=== PATIENT | male | born 1965 ===

== ENCOUNTER 2025-04-11 11:58 | Inpatient (IN) | payer BC, SELFPAY ==
[2025-04-11] VITALS (13 sets, daily range): BP systolic 98–219; BP diastolic 60–112; BMI 35.9; BMI 34.6
--- NOTE | 2025-04-11 09:09 | ED.GENMED ---
History of Present Illness
<Amirah Amaya PA-C - Last Filed: 04/11/25 14:04>
General
Chief Complaint: Breathing Problem
Source: patient
Exam Limitations: none
Time Seen by Provider: 04/11/25 09:05
History of Present Illness
History of Present Illness:
59yoM with a history of coronary artery disease s/p CABGx4 in 2019 presenting for evaluation of shortness of breath. Patient reports progressive dyspnea over the past 2 to 3 weeks to the point where he is having difficulty getting out of bed and he
is having significant difficulty walking up steps. It takes him 5 to 10 minutes after resting to catch his breath. He is also having worsening leg swelling and he started to notice scrotal swelling a few weeks ago. Patient reports that he has
gained 30 pounds in the past year. He denies any chest pain. He has not seen his flow trader in at least 3 years. He was previously following with Dr. Madan Wooten. He is currently taking furosemide 40mg daily and aspirin. 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
Phy Exam
<Amirah Amaya PA-C - Last Filed: 04/11/25 14:04>
General Physical Exam
General Presentation: moderate distress
General age: appears older than age
General Skin: warm and dry
General Habitus: normal
General Mental: alert
ENT Exam
ENT Exam: normocephalic
Cardiovascular Exam
Cardiovascular Exam: regular rate/rhythm and other (Significant 4+ pitting edema of lower extremities up to level of the abdomen and scrotum)
Pulmonary Exam
Pulmonary Exam: decreased breath sounds and other (Decreased breath sounds with rales)
Gastrointestinal Exam
Gastrointestinal Exam: other (Abdomen distended with +fluid wave. No tenderness to palpation. )
Genitourinary Exam Male
Exam Male: other (Penile/scrotal edema noted. No wounds, crepitus, or tenderness. )
Neurological Exam
Neurological Exam: alert
[place] Coma Scale
Eye Opening: Spontaneous
Verbal Response: Oriented
Motor Response: Obeys Commands
GCS Total Score: 15
Skin Exam
Skin Exam: normal color and warm/dry
Psychiatric Exam
Psychiatric Exam: normal mood/affect
Scores
<Amirah Amaya PA-C - Last Filed: 04/11/25 14:04>
Heart Failure Risk
Heart Failure Risk Score: Yes
History of Stroke or TIA: No
History of intubation for respiratory distress: No
Heart rate on ED arrival >/= 110: No
SaO2 <90% on arrival on room air: Yes
HR >/=110 during 3min walk test (or too ill to perform test): No
ECG has acute ischemic changes: Yes
Urea >/=12mmol/L (BUN 33.6mg/dL): No
Serum CO2>/=35mmol/L: No
Troponin I or T elevated to [place] Level (0.4mg/dL): Yes
NT-proBNP >/=5,000ng/L (5,000pg/ml): Yes
HF Risk Score: 6
Admission Status: VERY HIGH RISK 55.3% Consider admission to hospital
Course
<Amirah Amaya PA-C - Last Filed: 04/11/25 14:04>
Orders/Labs/Results
Orders:
Orders
04/11/25 08:41
Electrocardiogram (*1) Urgent
Reason for Study: Shortness of Breath
EKG- Treatment ONCE
04/11/25 09:29
Cardiac Monitoring- Treatment ONCE
CR Chest - 2 Views Urgent
Comment:
Reason For Exam: SOB, leg swelling
04/11/25 09:37
US Abdomen Limited Urgent
Comment:
Reason For Exam: ascites check
04/11/25 09:40
COVID-19 Antigen Urgent
Source: Nasal Swab
Complete Blood Count/With Diff Urgent
Comprehensive Metabolic Panel Urgent
Lactic Acid Urgent
NT-proBNP Urgent
Troponin I Urgent
Blood Culture Q30M
CHRISTINE Source: Blood/Venous
Specimen Description:
Influenza A+B Rapid Molecular Urgent
CHRISTINE Source: Nasal Swab
Specimen Description:
04/11/25 10:24
Furosemide [Lasix] 80 mg IV NOW STA
04/11/25 10:49
CARDIOLOGY CONSULT Urgent
Consulting Provider: Nadine Franz
Was physician already notified: Yes
04/11/25 11:21
Straight cath- Treatment ONCE
Cefepime HCl [Maxipime] 2,000 mg IV NOW STA
Vancomycin [Vancocin] 2,000 mg 0.9% Sodium Chloride 500 ml [Nss] 500 ml IV NOW
04/11/25 11:36
Admit/Transfer Patient As Directed
Co-Sign Provider:
Level of Care: Inpatient admission
Assign to:: IMU- Intermediate Care
Physician / Group: Hospitalist
Diagnosis: Sepsis/ CHF / positive troponin
Reason for Hospitalization: .
Expected length of stay greater than two midnights?: Yes
ELOS- Estimated Length of Stay in days: 3
I certify the patient meets the requirements for IP care: Yes
Code Status As Directed
Resuscitation Status: Full Code
PRN Pain Medication Management As Directed
May give lesser potent ordered pain med per pt: Yes
preference::
Protocol:: Medication orders for pain may be administered in a
manner that supports deferring to patient preference
when the pt is:
- Requesting an ordered lesser potent pain medication.
Least to most potent pain medications are defined
as: acetaminophen < NSAID < tramadol < opioids
(morphine, oxycodone, hydromorphone).
- Requesting a lesser dose of the same medication IF
ORDERED.
- Requesting a less intrusive route of administration
if both routes are prescribed by the provider (PO <
IV).
04/11/25 12:17
Troponin I Stat
Blood Culture Q30M
CHRISTINE Source: Blood/Venous
Specimen Description:
04/11/25 13:54
Urinalysis Reflex To Culture Urgent
Date Specimen was Collected: 04/11/25
Time Specimen was Collected: 13:32
Abnormal Lab Results
04/11/25
09:40
WBC 22.7 H 10^3/uL
(4.8-10.8)
RBC 4.43 L 10^6/uL
(4.70-6.10)
Hgb 12.5 L g/dL
(13.0-18.0)
MCHC 31.8 L g/dL
(33.0-37.0)
RDW 16.9 H %
(11.5-14.5)
Abs Immat Gran (auto) 0.2 H 10^3/uL
(0-0.05)
Absolute Neuts (auto) 20.4 H 10^3/uL
(1.4-6.5)
Absolute Lymphs (auto) 0.7 L 10^3/uL
(1.2-3.4)
Absolute Monos (auto) 1.4 H 10^3/uL
(0.1-0.6)
Immature Gran % 0.7 H %
(0-0.5)
Neutrophils % 89.8 H %
(42.2-75.2)
Lymphocytes % 3.1 L %
(20.5-51.1)
Glucose 110 H mg/dl
(70-99)
Lactic Acid 2.1 H mmol/L
(0.7-2.0)
Total Bilirubin 2.0 H mg/dl
(0.2-1.3)
Troponin I 0.324 H* ng/ml
04/11/25 09:40
04/11/25 09:40
Vital Signs
Initial and Last Documented VS:
Initial Vital Signs
Temp Pulse Resp BP Pulse Ox
100.7 F H 109 18 219/110 96
04/11/25 08:37 04/11/25 08:37 04/11/25 08:37 04/11/25 08:37 04/11/25 08:37
Last Documented Vital Signs
Temp Pulse Resp BP Pulse Ox
101.6 F H 96 11 122/72 98
04/11/25 12:20 04/11/25 13:00 04/11/25 10:00 04/11/25 13:00 04/11/25 13:00
<Zenon Donis MD - Last Filed: 04/11/25 11:21>
Orders/Labs/Results
Orders:
Orders
04/11/25 08:41
Electrocardiogram (*1) Urgent
Reason for Study: Shortness of Breath
EKG- Treatment ONCE
04/11/25 09:29
Cardiac Monitoring- Treatment ONCE
CR Chest - 2 Views Urgent
Comment:
Reason For Exam: SOB, leg swelling
04/11/25 09:37
US Abdomen Limited Urgent
Comment:
Reason For Exam: ascites check
04/11/25 09:40
COVID-19 Antigen Urgent
Source: Nasal Swab
Complete Blood Count/With Diff Urgent
Comprehensive Metabolic Panel Urgent
Lactic Acid Urgent
NT-proBNP Urgent
Troponin I Urgent
Blood Culture Q30M
CHRISTINE Source: Blood/Venous
Specimen Description:
Influenza A+B Rapid Molecular Urgent
CHRISTINE Source: Nasal Swab
Specimen Description:
04/11/25 10:24
Furosemide [Lasix] 80 mg IV NOW STA
04/11/25 10:49
CARDIOLOGY CONSULT Urgent
Consulting Provider: Nadine Franz.
Was physician already notified: Yes
04/11/25 11:21
Straight cath- Treatment ONCE
Cefepime HCl [Maxipime] 2,000 mg IV NOW STA
Vancomycin [Vancocin] 2,000 mg 0.9% Sodium Chloride 500 ml [Nss] 500 ml IV NOW
04/11/25 11:36
Admit/Transfer Patient As Directed
Co-Sign Provider:
Level of Care: Inpatient admission
Assign to:: IMU- Intermediate Care
Physician / Group: Hospitalist
Diagnosis: Sepsis/ CHF / positive troponin
Reason for Hospitalization: .
Expected length of stay greater than two midnights?: Yes
ELOS- Estimated Length of Stay in days: 3
I certify the patient meets the requirements for IP care: Yes
Code Status As Directed
Resuscitation Status: Full Code
PRN Pain Medication Management As Directed
May give lesser potent ordered pain med per pt: Yes
preference::
Protocol:: Medication orders for pain may be administered in a
manner that supports deferring to patient preference
when the pt is:
- Requesting an ordered lesser potent pain medication.
Least to most potent pain medications are defined
as: acetaminophen < NSAID < tramadol < opioids
(morphine, oxycodone, hydromorphone).
- Requesting a lesser dose of the same medication IF
ORDERED.
- Requesting a less intrusive route of administration
if both routes are prescribed by the provider (PO <
IV).
04/11/25 12:17
Troponin I Stat
Blood Culture Q30M
CHRISTINE Source: Blood/Venous
Specimen Description:
04/11/25 13:54
Urinalysis Reflex To Culture Urgent
Date Specimen was Collected: 04/11/25
Time Specimen was Collected: 13:32
Abnormal Lab Results
04/11/25
09:40
WBC 22.7 H 10^3/uL
(4.8-10.8)
RBC 4.43 L 10^6/uL
(4.70-6.10)
Hgb 12.5 L g/dL
(13.0-18.0)
MCHC 31.8 L g/dL
(33.0-37.0)
RDW 16.9 H %
(11.5-14.5)
Abs Immat Gran (auto) 0.2 H 10^3/uL
(0-0.05)
Absolute Neuts (auto) 20.4 H 10^3/uL
(1.4-6.5)
Absolute Lymphs (auto) 0.7 L 10^3/uL
(1.2-3.4)
Absolute Monos (auto) 1.4 H 10^3/uL
(0.1-0.6)
Immature Gran % 0.7 H %
(0-0.5)
Neutrophils % 89.8 H %
(42.2-75.2)
Lymphocytes % 3.1 L %
(20.5-51.1)
Glucose 110 H mg/dl
(70-99)
Lactic Acid 2.1 H mmol/L
(0.7-2.0)
Total Bilirubin 2.0 H mg/dl
(0.2-1.3)
Troponin I 0.324 H* ng/ml
04/11/25 09:40
04/11/25 09:40
Vital Signs
Initial and Last Documented VS:
Initial Vital Signs
Temp Pulse Resp BP Pulse Ox
100.7 F H 109 18 219/110 96
04/11/25 08:37 04/11/25 08:37 04/11/25 08:37 04/11/25 08:37 04/11/25 08:37
Last Documented Vital Signs
Temp Pulse Resp BP Pulse Ox
101.6 F H 96 11 122/72 98
04/11/25 12:20 04/11/25 13:00 04/11/25 10:00 04/11/25 13:00 04/11/25 13:00
<Amirah Amaya PA-C - Last Filed: 04/11/25 14:04>
MDM/Problems Addressed
Differential Diagnosis Includes:
59yoM here with progressive SOB and leg swelling x several months. Has not seen his flow trader in several years. BP 219/110 on arrival. HR 100.7. He was previously unaware of this fever. Anasarca noted on exam with lower extremity, scrotal, and
abdominal pitting edema. Differential diagnosis includes but is not limited to: Acute CHF exacerbation, cardiorenal syndrome, ACS, pneumonia, viral illness, sepsis
Initial ED plan: Triage EKG shows sinus tachycardia with low voltage QRS and nonspecific T wave changes. Check cardiac labs, lactate, blood cultures, COVID/swab, UA, chest x-ray, and abdominal ultrasound to evaluate for ascites.
<Amirah Amaya PA-C - Last Filed: 04/11/25 14:04>
*Pulse Oximetry
SaO2: 96
Oxygen Mode of Delivery: Room air
Patient hypoxic: yes
*EKG
Interpreted by ED Provider?: Yes
EKG Intrepretation Date: 04/11/25
Heart Rate: 111
Rate: tachycardiac
Rhythm: sinus
[place]: normal axis
Interval: normal interval
QRS Pattern: low voltage
Ischemia: T-wave inversion
*Critical Care Note
Total Time (30-74mins, 75-104mins- exclusive of procedures): Not Applicable
<Amirah Amaya PA-C - Last Filed: 04/11/25 14:04>
Update Note
Update Note:
Labs reveal a BNP >18,000 and troponin of 0.324. Leukocytosis noted with a white count of 22 and lactate elevated at 2.1. Chest x-ray shows pulmonary edema. Unclear etiology of fever. Broad-spectrum antibiotics and 80 mg IV Lasix ordered.
Patient admitted for further evaluation and management.
ED Attending Note
<Amirah Amaya PA-C - Last Filed: 04/11/25 14:04>
-
Portions of this chart may have been created with voice recognition software.� Occasional wrong word or��sound alike� substitutions may have occurred due to the inherent limitations of voice recognition software.
<Zenon Donis MD - Last Filed: 04/11/25 11:21>
ED Attending Note
Patient seen and examined by attending physician: Yes
I performed the substantive portion of visit, reviewed & personally made and approve the management plan that is documented in note by myself or JOHN.: Yes
ED Attending Note:
59-year-old male with a history of CABG hypertension presents with shortness of breath progressive over 1+ month along with diffuse edema that is also becoming progressive. Denies chest pain. Denies fever or infectious symptoms. Only takes Lasix
and an aspirin. Positive smoker. Occasional drinker.
GENERAL: Alert and oriented
EYE: Orbits normal.
NECK: Supple, no significant adenopathy.
ENT: Pharynx without erythema
CARDIAC: Mildly tachycardic and regular no murmur
LUNGS: Rales in the bases. Mild tachypnea at rest
ABDOMEN: Tight distended abdomen but nontender. Some pitting.
: Scrotal edema. No obvious erythema for Bubba's
NEUROLOGICAL: Alert and oriented , grossly non-focal
SKIN: Warm and dry, chronic erythematous and hyper pigmentation changes the lower extremities.
MUSCULOSKELETAL: Significant pitting edema throughout both lower extremities up to and including the scrotum. Also some pitting to the upper extremities worse on the left
PSYCH: Normal and appropriate interaction.
EKG tachycardia with nonspecific changes. Patient clinically has significant edema. This may be heart failure related, kidney related or both. With low-grade fever also workup for an infectious etiology. Clearly warrants admission. Workup in
progress
All consistent with heart failure. proBNP 17,000. Anasarca with diffuse edema. Pulmonary edema on x-ray. There are of course could be a septic component to this. Hospitalist feels this is a significant component. Will check urine and cover
with antibiotics. Also contact cardiology
Discharge Plan
Departure
Patient Disposition: Admit
Date of Disposition: 04/11/25
Time of Disposition: 10:48
Presentation/result/management discussed w/ accepting MD/DO: Hospitalist
Discharge Problem:
Acute exacerbation of CHF (congestive heart failure), Elevated troponin, Fever
Interventions
Interventions:
*Risk Screen - Suicide Last Done: 04/11/25 08:37
*General Assessment Last Done: 04/11/25 09:40
*Neglect/Abuse Screening Last Done: 04/11/25 08:37
*ED COVID-19 Vaccine History Last Done: 04/11/25 11:14
*ED Influenza Vaccine History Last Done: 04/11/25 11:14
ED- Cardiac Assessment Last Done: 04/11/25 09:40
ED- Pulmonary Assessment Last Done: 04/11/25 09:40
[2025-04-11 10:04] LABS: ALT (SGPT) 22 U/L (0-50); AST (SGOT) 27 U/L (17-59); Albumin 3.9 g/dl (3.5-5.0); Alkaline Phosphatase 117 U/L (38-126); Blood Urea Nitrogen 14 mg/dl (9-20); Calcium 8.7 mg/dl (8.4-10.2); Carbon Dioxide 26 mmol/L (22-30); Chloride 105 mmol/L (98-107); Estimated Creatinine Clearance 94 ml/min; Glucose 110 mg/dl (70-99); Potassium 4.4 mmol/L (3.5-5.1); Sodium 138 mmol/L (135-145); Total Protein 8.1 g/dl (6.3-8.2); eGFR > 60.00
[2025-04-11 10:20] LABS: Troponin I 0.324 ng/ml
[2025-04-11 10:29] LABS: COVID-19 Antigen Negative (Negative)
--- NOTE | 2025-04-11 10:58 | HPS.HSE ---
Family Physician
-
Family Physician: * NONE
Chief Complaint
-
Progressive weakness or shortness of breath with edema last a few days/weeks
History of Present Illness
59 years old male presented from home. Patient reported he has been having shortness of breath/trouble breathing last a few days. His stepfather brought him to the hospital after noticing breathing difficulty and weakness. Patient reported edema
all over his body and mostly lower part including scrotum. He denies chest pain. He denies fever or chills but reports he is always cold. In the ER, he was found to have leukocytosis, lactic acidosis, elevated proBNP and troponin of 0.324.
Patient has history of cardiac bypass surgery in 2019 in [facility]. He followed with customer operations representative at the time but has not seen a doctor or primary care few years ago. He has not taken any medication more than 1 year ago. He was supposed to be
on Lasix and the aspirin as he recalled. He smokes tobacco and takes Gummies to help with sleep. He reports difficulty urination.
Medical History
Past Medical History
Past Medical History: Reports Other (CAD, tobacco use, obesity)
Past Surgical History: Reports Other (Coronary bypass surgery in 2019)
Social History
Tobacco: Smoker
Alcohol: Occasional
Drug: Marijuana
Personal: Single
Living: With Family
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
Family History
Family History: Other (History of congestive heart failure. No history of diabetes or blood clots.)
Allergies / Home Medications
Allergies reflects when Allergies were last updated in [facility].
Home Medications with original date entered in [facility]
Allergy/Medication List:
Allergies
Allergy/AdvReac Type Severity Reaction Status Date / Time
No Known Allergies Allergy Verified 04/11/25 08:41
Home Medications
No Meds [No Current Medications] 04/11/25
Review of Systems
-
History Source: Patient
A 12 point ROS was completed and negative except as noted: Yes
Constitutional: Reports Chills
EENT: Denies Sore Throat
Respiratory: Reports Trouble Breathing
Cardiac: Denies Chest Pain
Abdomen/GI: Denies Abdominal Pain or Diarrhea
: Reports Difficulty Voiding; Denies Bleeding
Musculoskeletal: Reports Edema
Skin: Denies Rash
Neurological: Reports Weakness; Denies Numbness
Hematologic/Lymphatic: Denies Bruising
Psych: Denies Panic Disorder
Physical Exam
Vital Signs
Vital Signs
Temp Pulse Resp BP Pulse Ox
100.7 F H 109 18 219/110 96
04/11/25 08:37 04/11/25 08:37 04/11/25 08:37 04/11/25 08:37 04/11/25 09:10
Physical Exam
General: Conversant, Appears Chronically Ill and Obese
HEENT: Anicteric and Atraumatic
Respiratory: Rales; No Wheezes
Cardiac: S1/S2 and Tachycardia
GI: Soft, Non Tender and Other (Abdominal wall edema)
Genito-urinary: No costovertebral tender and Other (Scrotal swelling); No [place]
Musculoskeletal: No Cyanosis
Skin: No Jaundice
Neuro: AO x 3 and Nonfocal/grossly intact
Psych: Calm and Intact Judgment/Insight
Laboratory Results
-
04/11/25 09:40
Laboratory Results
Lactic Acid 2.1 mmol/L (0.7-2.0) H 04/11/25 09:40
Total Bilirubin 2.0 mg/dl (0.2-1.3) H 04/11/25 09:40
AST 27 U/L (17-59) 04/11/25 09:40
ALT 22 U/L (0-50) 04/11/25 09:40
Alkaline Phosphatase 117 U/L (38-126) 04/11/25 09:40
Troponin I 0.324 ng/ml H* 04/11/25 09:40
Impression/Plan
-
59 years old male presented with progressive weakness, shortness of breath and edema
#Acute respiratory distress
Acute hypoxic respiratory failure with oxygen 85% on presentation, in distress, using accessory muscle
Acute congestive heart failure unknown type,
Differential diagnosis include congestive heart failure, unknown type, primary pulmonary pathology as pneumonia
Admit the patient to high-level care/IMU
No hypotension and not requiring pressure support medications
Patient was given intravenous Lasix
Patient has elevated JVD with peripheral edema/ascites
Patient will require continue intravenous diuretic. We do not know the dry weight
Significant history of noncompliance
Paracentesis if needed
EKG is abnormal, no comparison available
Positive troponin with no chest pain
Order echocardiogram
Empiric antibiotic. Negative COVID and influenza
Recheck troponin level. Monitor on telemetry.
# Hypertensive emergency with acute cardiogenic pulmonary edema
Will continue with diuretic therapy,
Will add nitroglycerin drip which will help with pulmonary edema
Will discussed with cardiology, appreciate cardiology help
# Sepsis present on admission with leukocytosis, lactic acidosis, fever, tachycardia
Source could be urinary source with history of difficult urination over the last a few days no abdominal pain or GI symptoms. No significant cough.
Negative influenza and COVID
No abdominal tenderness on examination
His shortness of breath but can be explained by congestive heart failure/acute cardiogenic pulmonary edema more than Pneumonia.
Will do blood culture. Empiric cefepime and vancomycin for now.
Urine test and culture
Tylenol for fever
Will follow with CT Abdomen/ Pelvis.
# Positive troponin. No chest pain. Suspect nonischemic myocardial injury secondary to congestive heart failure and tachycardia
History of coronary artery disease status post bypass in 2019. Has not followed customer operations representative in few years and does not take any medications > 1 year.
Repeat troponin.
Order echocardiogram
Repeat EKG
Antiplatelet therapy with aspirin
Rate controlled with low-dose beta-ginette and Nitrate
Hemoglobin A1c
Follow-up with cardiology recommendations
# Difficulty urination. On exam patient has significant lower abdominal edema/scrotal edema. No tenderness on exam. Discussed with urologist, will order CAT scan with and without contrast to rule out an abscess.
Empiric antibiotics. ER staff could not do straight cath due to swelling. Appreciate urology help
# Tobacco use and marijuana use.
# Medical noncompliance
# DVT prophylaxis
Total critical time spent to see the patient, examine the patient, review data and lab result, discuss treatment plan with patient, ER Doctor, consultants, nursing staff around 90 minutes
--- NOTE | 2025-04-11 11:19 | EDRN ---
lab called as cbc still not resulted, stated analyzer did not garbage pick up worker sample and is running now. @[phone]
[2025-04-11 11:30] LABS: Hematocrit 39.3 % (39.0-52.0); Hemoglobin 12.5 g/dL (13.0-18.0); Mean Corp Hgb Conc. 31.8 g/dL (33.0-37.0); Mean Corpuscular Volume 88.7 fL (80.0-94.0); Nucleated Red Blood Cells % 0 % (-); Platelet Count 249 10^3/uL (130-400); Red Cell Dist. Width 16.9 % (11.5-14.5)
[2025-04-11] MEDS: LASIX 80 MG IV (11:55)
--- NOTE | 2025-04-11 12:02 | EDCM ---
CM reviewed chart and met with pt bedside in ED. Lives with his stepfather in 2 story home with basement and attic. Has first floor half bath, full flight to second floor bedroom and full bath.
Independent in ADLs, personal care and ambulation at baseline. 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
Has had multiple family members pass away over the past year, admits to anxiety attacks and fear of doctors and hospitals.
Currently on O2. No DME at home.
Confirms prescription insurance.
No hx VN or SNF
Does not currently have PCP, had primary at [facility] in past but has not followed up in years.
Pharmacy: [facility] [place]
Anticipate discharge home, CM will continue to follow for any discharge planning needs.
[2025-04-11] MEDS: TYLENOL 1000 MG PO (12:32)
[2025-04-11] MEDS: MAXIPIME 2000 MG IV (12:34)
[2025-04-11 12:51] LABS: Troponin I 0.299 ng/ml
[2025-04-11] MEDS: VANCOCIN 540 MG IV (14:04)
[2025-04-11 14:08] LABS: Urine Character Clear (Clear)
[2025-04-11 14:27] LABS: Urine Red Blood Cell 0-2 /HPF (0-2); Urine Squamous Cell 0-2 /LPF (Few)
[2025-04-11] MEDS: IMDUR (EXTENDED RELEASE) 30 MG PO (16:09)
[2025-04-11] MEDS: LASIX 40 MG IV (16:09)
[2025-04-11] MEDS: HEPARIN 5000 UNITS SC ×2 (16:10→23:38)
[2025-04-11] MEDS: LOW STRENGTH ASPIRIN 81 MG PO (16:13)
--- NOTE | 2025-04-11 16:36 | CONS.URO ---
Consultation
-
Date/Time Consultation Performed: 04/11/25 1330
Performing Provider: Chancefer
Reason for Consultation: Urinary retention, difficult ho
Medical History
History of Present Illness
59M p/w shortness of breath/trouble breathing last a few days. His stepfather brought him to the hospital after noticing breathing difficulty and weakness. Patient reported edema all over his body and mostly lower part including scrotum. He
denies chest pain. He denies fever or chills but reports he is always cold. In the ER, he was found to have leukocytosis, lactic acidosis, elevated proBNP and troponin of 0.324.
Patient has history of cardiac bypass surgery in [address] [facility]. He followed with pants closer at the time but has not seen a doctor or primary care for years. He has not taken any medication since more than 1 year ago. He was supposed to
be on Lasix an aspirin.
He reports some increased difficulty with urination due to buried penis and scrotal swelling over a period of at least a few months
He has to void into a thermos then dump this in the toilet due to inability to see or aim his penis
He however does not complain of weak stream, difficulty emptying, frequency, urgency, burning, hematuria
No prior urologic history
Urology consulted after nursing unable to place ho
He was found to be septic from unknown source
Past Medical History: Reports Other (CAD, tobacco use, obesity)
Past Surgical History: Reports Other (Coronary bypass surgery in 2019)
Social History
Tobacco: Smoker
Alcohol: Occasional
Drug: Marijuana
Personal: Single
Living: With Family
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
Allergies/Home Medications
Allergies
Allergy/AdvReac Type Severity Reaction Status Date / Time
No Known Allergies Allergy Verified 04/11/25 08:41
Home Medications
�Medication �Instructions �Recorded �Confirmed �Type
No Meds [No Current Medications] 04/11/25 04/11/25 History
Physical Exam
Vital Signs
Vital Signs
Temp Pulse Resp BP Pulse Ox
98.9 F 89 19 109/60 97
04/11/25 15:46 04/11/25 14:30 04/11/25 14:30 04/11/25 14:00 04/11/25 14:00
Lab / Testing Results
Laboratory Results
04/11/25 09:40
04/11/25 09:40
Physical Exam
General: Well Developed, Well Nourished and No Apparent Distress
Respiratory: Non Labored Respirations
GI: Non Tender and Distended
Genito-urinary: No Costovertebral Tend and Other (scrotum and foreskin severely edematous with buried penis. Skin slightly tough and mayr but nontender, normal temp)
Neuro: AO x 3
Psych: Calm and Intact Judgement
Assessment / Plan
-
59M with sepsis, acute CHF, ascites, hypertensive emergency
- Ho catheter difficult due to very edematous foreskin and buried penis. Once placed, there was output of clear urine
- Patient does not describe difficulty voiding to me (other than chronic inability to aim and needing to void in a container) but did discuss some difficulty to others
- Relatively low suspicion for source of sepsis. Urine was very clear on ho placement and UA appears fairly clean. CTAP showed no obstructive uropathy or hydronephrosis, no stranding of bladder or kidneys
- Consider possible cellulitis of LE/scrotum though these areas are abnormal appearing more likely due to chronic edema . No signs of Bubba's gangrene.
- F/U urine culture
- Okay to remove ho catheter once sepsis resolved, no further need for accurate I/O, and patient's overall condition stable
- Bladder scan will not be accurate for measuring the bladder volume due to ascites
[2025-04-11] MEDS: APRESOLINE 5 MG PO ×2 (17:19→23:39)
--- NOTE | 2025-04-11 17:32 | PTCARENOTE ---
pt states at urgent care for testicle swelling, his weight was 195lbs however he believes he's typically less than that. Pt needing lots of reinforcement regarding plan of care and present illness.
[2025-04-11] MEDS: COREG 3.125 MG PO (19:59)
[2025-04-11] MEDS: MAXIPIME 1000 MG IV (19:59)
[2025-04-11] MEDS: STERILE WATER FOR INJECTION 10 ML IV (20:00)
[2025-04-12] VITALS (13 sets, daily range): BP systolic 101–140; BP diastolic 68–89; PULSE 73; O2SAT 96; BMI 35.0
[2025-04-12 04:03] LABS: Hematocrit 35.4 % (39.0-52.0); Hemoglobin 11.3 g/dL (13.0-18.0); Mean Corp Hgb Conc. 31.9 g/dL (33.0-37.0); Mean Corpuscular Volume 89.2 fL (80.0-94.0); Platelet Count 212 10^3/uL (130-400); Red Cell Dist. Width 16.9 % (11.5-14.5)
--- NOTE | 2025-04-12 04:19 | PTCARENOTE ---
pt with frequent periods of apnea while asleep; pox dropping to 87-88% on 2L oxygen. Arouses easily. Continuing to monitor
[2025-04-12] MEDS: MAXIPIME 1000 MG IV ×3 (04:22→21:37)
[2025-04-12] MEDS: STERILE WATER FOR INJECTION 10 ML IV ×3 (04:22→21:38)
[2025-04-12 04:27] LABS: Blood Urea Nitrogen 19 mg/dl (9-20); Calcium 8.4 mg/dl (8.4-10.2); Carbon Dioxide 28 mmol/L (22-30); Chloride 103 mmol/L (98-107); Estimated Creatinine Clearance 77 ml/min; Glucose 103 mg/dl (70-99); Potassium 4.4 mmol/L (3.5-5.1); Sodium 137 mmol/L (135-145); eGFR > 60.00
[2025-04-12] MEDS: LOW STRENGTH ASPIRIN 81 MG PO (08:35)
[2025-04-12] MEDS: APRESOLINE 5 MG PO (08:35)
[2025-04-12] MEDS: COREG 3.125 MG PO (08:35)
[2025-04-12] MEDS: IMDUR (EXTENDED RELEASE) 30 MG PO (08:35)
[2025-04-12] MEDS: LASIX 40 MG IV ×2 (08:36→16:41)
[2025-04-12] MEDS: HEPARIN 5000 UNITS SC ×2 (08:37→16:40)
--- NOTE | 2025-04-12 09:01 | CON.CAR ---
Consultation
Consultation Request
Date/Time Consultation Requested: 04/11/25
Date/Time Consultation Performed: 04/12/25
Reason for Consultation: Heart failure and hypertensive urgency
Medical History
-
Chief Complaint: Shortness of breath
History of Present Illness:
59-year-old gentleman who has a history of coronary artery disease status post coronary to bypass graft in 2019 and history of tobacco abuse and obesity who has not seen a physician for the past few years presented with progressive weakness,
shortness of breath, edema.
In the ER patient was noted to be in anasarca with diffuse fluid with third spacing including sacral and scrotal edema. Patient was brought into the hospital after noticing to have difficulty with breathing and weakness by his step father. He was
noted to be in severe acute heart failure with leukocytosis, lactic acidosis and elevated proBNP.
Patient denies any chest pain. Initial troponin was 0.324 which came down to 0.29.
Patient was also noted to be in hypertensive urgency with blood pressure of 219 over 110 mmHg. Patient was treated with start of carvedilol, hydralazine and Imdur. Patient blood pressure has responded and gradually came down to 109/60. Cardiology
was consulted for heart failure and possible infection and acute heart failure management.
With severe edema and ascites, GI was consulted. Patient is LFTs are within normal limits. With ascites noted, there was a concern for cardiogenic cirrhosis. Plan for paracentesis per GI. Given patient's difficulty in ambulation and urination,
Arroyo's catheter was placed. Urology has evaluated. No signs of urinary tract infection noted.
With leukocytosis, patient was suspected to have septicemia. Possible source of infection is cellulitis of the lower extremities with severe venous congestion. Started on antibiotics as per primary team. Fever, lactic acidosis and tachycardia all
responded to therapy.
Past Medical History
Past Medical History: CAD (Status post CABG 2019 details unclear.), CHF and HTN
Social History
Tobacco: Smoker
Alcohol: Occasional
Drug: Marijuana
Personal: Single
Living: With Family
Employment: Employed
Family History
Family History: Reviewed & Not Pertinent
Allergies / Home Medications
Allergy/AdvReac Type Severity Reaction Status Date / Time
No Known Allergies Allergy Verified 04/11/25 08:41
�Medication �Instructions �Recorded �Confirmed �Type
No Meds [No Current Medications] 04/11/25 04/11/25 History
Review of Systems
-
All other systems: Negative unless noted
Physical Exam
Vital Signs
Temp Pulse Resp BP Pulse Ox
98.1 F 79 9 101/71 94
04/12/25 08:00 04/12/25 05:45 04/12/25 05:45 04/12/25 04:00 04/12/25 05:45
Lab Results
04/12/25 03:20
04/12/25 03:20
Troponin I 0.299 ng/ml H* 04/11/25 12:17
Vcn-S-Fmcccnemzay Pept 58167 pg/ml 04/11/25 09:40
Physical Exam
General: Well Developed, Well Nourished and Comfortable
HEENT: Normocephalic, Anicteric and Moist Mucous Membranes
Respiratory: Crackles
Cardiac: S1/S2, Regular Rhythm, Murmur, Peripheral Edema and JVD
GI: Soft and Non Tender
Musculoskeletal: No Clubbing, No Cyanosis and Edema
Skin: Warm and Dry
Neuro: Awake and Alert
Impression / Plan
-
59-year-old gentleman who has a history of CAD S/P CABG in 2019 and history of tobacco abuse, noncompliance, and obesity who has not seen a physician for the past few years presented with septicemia, and acute heart failure and hypertensive urgency
Acute heart failure
- Patient was noted to be in anasarca with JVD, vascular congestion, peripheral venous congestion, ascites, pleural effusions.
- Echo is pending.
- proBNP is 18,000.
- Patient was not on any medications at this time.
- Needs to be diuresed. Currently responding to Lasix 40 mg IV twice a day.
- Started on Coreg 3.125 mg twice a day and hydralazine 5 mg 3 times daily.
- Will need to be restarted on multiple medications before he is able to go home.
- Plan for echo in the morning.
- Plan for Coreg, possible Farxiga at the time of discharge
Hypertensive urgency
- Blood pressure has responded nicely to the start of medications.
- I will discontinue his hydralazine.
- Change Coreg to 6.25 mg twice a day
- If blood pressure is acceptable, we might be able to discontinue Imdur tomorrow.
- Continue diuresis with Lasix.
Coronary artery disease
- Status post CABG
- Troponin leak is stable and is likely not on [place] troponin leak due to severe vascular congestion.
- Rule out pericardial effusion. Less likely as cardiac sounds are normal.
Data Reviewed
-
EKG: Tracing Personally Visualized and interpreted and Report Reviewed by me
Labs: Labs Reviewed by me, Discussed with Physician and Discussed with Patient
Old Records: Reviewed
--- NOTE | 2025-04-12 09:19 | W.PN.HOSP.TC ---
Addendum entered and electronically signed by Alanna Ba MD 04/12/25 14:32:
Addendum
-Updated Step father Isaac Osullivan [phone]
He reported patient was refusing to go to hospital, was not taking medications and he had been in bad shape for few months.
Will update also as needed.
End
Original Note:
Today's Communication/Plan
-
see note
Assessment / Plan
Assessment / Plan
Physical Exam
General: Conversant, Appears Chronically Ill, not in distress and Obese
HEENT: Anicteric and Atraumatic
Respiratory: Rales; No Wheezes
Cardiac: S1/S2 and Tachycardia
GI: Soft, Non Tender and Other (Abdominal wall edema)/ Ascites/ distended.
Genito-urinary: No costovertebral tender and Other (Scrotal swelling); No Arroyo
Musculoskeletal: No Cyanosis
Skin: No Jaundice, Anasarca
Neuro: AO x 3 and Nonfocal/grossly intact
Psych: Calm and Intact Judgment/Insight
59 years old male presented with progressive weakness, shortness of breath and edema
#Acute respiratory distress, resolved.
Acute hypoxic respiratory failure with oxygen 85% on presentation, in distress, using accessory muscle
Acute congestive heart failure unknown type,
Differential diagnosis include congestive heart failure, doubt primary pulmonary pathology as pneumonia
c/w IV Lasix, he lost weight. Will need paracentesis which will help with breathing/ edema/ anasarca
Eventual addition of K sparing diuretic when more stability is achieved
Afterload reduction with small dose of hydralazine
f/w echo to understand underlying LVEF/ Valve function and appearance/ vegetations?
c/w IV Empiric antibiotic. Negative COVID and influenza
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
# Hypertensive emergency with acute cardiogenic pulmonary edema
Resolved with current medications
# Bacteremia
No recurrent fever
WBC is coming down
Sepsis present on admission with leukocytosis, lactic acidosis, fever, tachycardia
UA not impressive for UTI
CT Abdomen and pelvis no source of infection as colitis. Also patient does not have abdominal pain or tenderness making possibility of SBP unlikely
Could be cellulitis from LE as he seems to have chronic wounds/ skin excoriation. No significant cough.
Negative influenza and COVID
f/w cultures. Order echo
repeat blood culture
Tylenol for fever
# Positive troponin. No chest pain. Suspect nonischemic myocardial injury secondary to congestive heart failure and tachycardia
History of coronary artery disease status post bypass in 2019. 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
Order echocardiogram
Antiplatelet therapy with aspirin
repeat echo this morning
Rate controlled with low-dose beta-ginette , start with Coreg
Hemoglobin A1c
Appreciate cardiology recommendations
# Liver cirrhosis seen on CT with ascites
Patient denies regular ETOH intake
No hx of liver problems in past
Suspect cardiogenic
Will benefit from diuretics
Consulted GI, appreciate input
Consulted IR for paracentesis ( received by TT) and fluid testing
# Difficulty urination/ anasarca/ significant lower abdominal edema/scrotal edema. No tenderness on exam. Discussed with urologist, difficult to obtain urine specimen or catheterization ( attempted by ER staff) s/p Arroyo. Appreciate urology help
# Tobacco use and marijuana use ( not regular).
# Medical noncompliance
# DVT prophylaxis, SQ heparin
Total time spent to see the patient, examine the patient, review data and lab result, discuss treatment plan with patient, nursing staff around 59 minutes
Anticipated Discharge: > 48 hours
Subjective/Interval History
-
Date of Service: April 12, 2025
He feels better
No abd pain
No chest pain
Objective Data
-
Labs:
Laboratory Results
04/12/25
03:20
WBC 17.3 H
Hgb 11.3 L
Hct 35.4 L
Plt Count 212
Sodium 137
Potassium 4.4
Chloride 103
Carbon Dioxide 28
BUN 19
Creatinine 1.2
Glucose 103 H
Calcium 8.4
Vital Signs:
Vital Signs
Temp Pulse Resp BP Pulse Ox
98.1 F 79 9 101/71 94
04/12/25 08:00 04/12/25 05:45 04/12/25 05:45 04/12/25 04:00 04/12/25 05:45
I&O
04/11/25 04/12/25 04/13/25
06:59 06:59 06:59
Intake Total 500 / 500
Output Total 1850 / 1850
Balance -1350 / -1350
[2025-04-12] MEDS: NICODERM TRANSDERMAL 7 MG TRANSDERM (11:08)
--- NOTE | 2025-04-12 11:19 | CON.GI ---
Consultation
-
Date/Time Consultation Requested: 04/12/2025, 6:30am
Date/Time Consultation Performed: 04/12/2025, 11:30am
Requesting Provider: Dr. Ba
Performing Provider: Dr. Mccord
Reason for Consultation: cirrhosis
Medical History
Chief Complaint / HPI
Chief Complaint: SOB
History of Present Illness:
59 yo M presenting with SOB. History of noncompliance has not seen doctor in a few years and on no medications; had a CABG in 2019.
C/o SOB, weakness, edema. Found to have leukocytosis, elevated lactate acid, BNP, troponin leak.
Found to have likely heart failure exacerbation, HTN emergency with acute cardiogenic pulm edema, sepsis (leukocytosis, lactic acidosis, fever, tachycardia)
CT 04/11:
1. LARGE VOLUME ASCITES.
2. SEVERE HEPATIC CIRRHOSIS (possibly cardiogenic cirrhosis).
3. Previous cholecystectomy.
4. Mild to moderate distention of the urinary bladder.
5. Small right pleural effusion.
6. Mild to moderate cardiomegaly.
7. Previous CABG surgery.
8. Moderate to severe diffuse anasarca.
US 04/11 with large ascites.
Drinks one beer a week. No FH liver cancer, autoimmune dz. No meds takes some OTC herbal supplements. No upper/lower GI symptoms. + weight gain. Chills at night. Last colonoscopy >12 years ago.
Past Medical History
Past Medical History: CAD and Other (obesity)
Past Surgical History: Cardiac (CABG 2019)
Social History
Tobacco: Smoker
Alcohol: Occasional
Drug: Marijuana
Family History
Family History: Reviewed & Not Pertinent
Allergies / Home Medications
Allergy/AdvReac Type Severity Reaction Status Date / Time
No Known Allergies Allergy Verified 04/11/25 08:41
�Medication �Instructions �Recorded
No Meds [No Current Medications] 04/11/25
Review of Systems
-
All other systems: A 12 pt ROS was Negative except as stated above in HPI
Vital Signs
Temp Pulse Resp BP Pulse Ox
98.1 F 75 15 136/72 97
04/12/25 08:00 04/12/25 09:30 04/12/25 09:30 04/12/25 08:00 04/12/25 09:30
Physical Exam
Exam
General: Well Developed
HEENT: Normocephalic
Respiratory: Clear
Cardiac: S1/S2
GI: Non Tender and Distended
Genito-urinary: No Costovertebral Tender
Musculoskeletal: No Clubbing
Skin: Warm
Neuro: AO x 3
Hematologic/Lymphatic: No Lymphadenopathy
Psych: Calm
Results
WBC 17.3 10^3/uL (4.8-10.8) H 04/12/25 03:20
Hgb 11.3 g/dL (13.0-18.0) L 04/12/25 03:20
Hct 35.4 % (39.0-52.0) L 04/12/25 03:20
MCV 89.2 fL (80.0-94.0) 04/12/25 03:20
Plt Count 212 10^3/uL (130-400) 04/12/25 03:20
Absolute Neuts (auto) 20.4 10^3/uL (1.4-6.5) H 04/11/25 09:40
Sodium 137 mmol/L (135-145) 04/12/25 03:20
Potassium 4.4 mmol/L (3.5-5.1) 04/12/25 03:20
Chloride 103 mmol/L (98-107) 04/12/25 03:20
Carbon Dioxide 28 mmol/L (22-30) 04/12/25 03:20
BUN 19 mg/dl (9-20) 04/12/25 03:20
Creatinine 1.2 mg/dL (0.7-1.3) 04/12/25 03:20
Calcium 8.4 mg/dl (8.4-10.2) 04/12/25 03:20
Total Bilirubin 2.0 mg/dl (0.2-1.3) H 04/11/25 09:40
AST 27 U/L (17-59) 04/11/25 09:40
ALT 22 U/L (0-50) 04/11/25 09:40
Alkaline Phosphatase 117 U/L (38-126) 04/11/25 09:40
Diagnostic Image Results:
Prior GI Procedures:
EGD:
Colonoscopy:
Assessment / Plan
-
59 yo M pmh CABG, non compliant p/w SOB, edema and incidentally found cirrhosis on imaging.
Given his cardiac history, I have suspicion for cardiogenic cirrhosis.
LFTs normal except bili no direct bili. No coags - will order both.
Plan for paracentesis tomorrow. I reviewed fluid studies ordered for para and will add albumin for SAAG. Protein, cell count, cytology, culture already ordered.
Will check hep studies.
Further recommendations pending para.
-
-
Thank you for consultation and allowing me to participate in the patient's care. Please call the credit administration specialist GI physician during the after hours with any questions or concerns.
--- NOTE | 2025-04-12 12:21 | PTCARENOTE ---
Pt's assessment as documented. Aox3. NSR with prolonged QT on tele monitor. Sating mid 90's on 2L. Arroyo draining stacy urine. Repeat blood cultures drawn and sent. Pt updated on plan of care; however pt does not seem to fully grasp
situation/present illness. Safe environment maintained. Call beatty within reach.
--- NOTE | 2025-04-12 13:37 | W.PN.URO.CBU ---
Today's Communication / Plan
-
- Urine culture negative, no evidence of acute infection other than possibly cellulitis
- Okay to remove ho catheter once sepsis resolved, no further need for accurate I/O, and patient's overall condition stable
- Bladder scan will not be accurate for measuring the bladder volume due to ascites
Assessment / Plan
-
59M with sepsis, acute CHF, hypoxia, ascites, hypertensive emergency
- Ho catheter difficult due to very edematous foreskin and buried penis. Once placed, there was output of clear urine
- Patient does not describe difficulty voiding to me (other than chronic inability to aim and needing to void in a container)
- Relatively low suspicion for source of sepsis. Urine was very clear on ho placement and UA appears fairly clean. CTAP showed no obstructive uropathy or hydronephrosis, no stranding of bladder or kidneys
- Consider possible cellulitis of LE/scrotum though these areas are abnormal appearing more likely due to chronic edema . No signs of Bubba's gangrene on serial exam
- F/U urine culture
- Okay to remove ho catheter once sepsis resolved, no further need for accurate I/O, and patient's overall condition stable
- Bladder scan will not be accurate for measuring the bladder volume due to ascites
Diagnosis
-
Date of Service: April 12, 2025
-
Patient Diagnosis:
buried penis
Scrotal edema
Post Op Day:
Subjective
-
No complaints today
Objective
-
Vital Signs
Temp Pulse Resp BP Pulse Ox
97.9 F 77 21 127/73 96
04/12/25 12:01 04/12/25 12:00 04/12/25 11:45 04/12/25 12:00 04/12/25 12:07
Intake and Output
04/11/25 04/12/25 04/13/25
06:59 06:59 06:59
Intake Total 500 / 500
Output Total 1849
Balance -1350 / -1350
Intake:
Oral fluids 500 / 500
Output:
Urine, Ho 1849
Laboratory Results
04/12/25 03:20
04/12/25 03:20
Physical Exam
-
General - well developed, well nourished, no acute distress
Chest - clear
Abdomen - soft, non-tender
Ho clear urine
Scrotum slightly red with chronic edematous changes
[2025-04-12] MEDS: COREG 6.25 MG PO (21:37)
[2025-04-13] VITALS (16 sets, daily range): BP systolic 62–130; BP diastolic 61–80; BMI 35.2
[2025-04-13] MEDS: HEPARIN 5000 UNITS SC ×3 (00:36→18:05)
--- NOTE | 2025-04-13 01:34 | PTCARENOTE ---
Assumed care of patient from romana RN. Pt aaox3. NSR with prolonged QT on the monitor. SpO2 95% on 2L. Arroyo draining stacy urine. Pt resting in bed with call beatty in reach.
[2025-04-13] MEDS: MAXIPIME 1000 MG IV ×3 (04:52→21:08)
[2025-04-13] MEDS: STERILE WATER FOR INJECTION 10 ML IV ×3 (04:52→21:06)
[2025-04-13 05:26] LABS: Hematocrit 34.0 % (39.0-52.0); Hemoglobin 10.8 g/dL (13.0-18.0); Mean Corp Hgb Conc. 31.8 g/dL (33.0-37.0); Mean Corpuscular Volume 86.7 fL (80.0-94.0); Platelet Count 200 10^3/uL (130-400); Red Cell Dist. Width 17.2 % (11.5-14.5)
[2025-04-13 05:36] LABS: INR 1.42; PT 17.6 Sec (11.4-14.6)
[2025-04-13 05:47] LABS: ALT (SGPT) 18 U/L (0-50); AST (SGOT) 20 U/L (17-59); Albumin 3.2 g/dl (3.5-5.0); Alkaline Phosphatase 98 U/L (38-126); Blood Urea Nitrogen 29 mg/dl (9-20); Calcium 8.6 mg/dl (8.4-10.2); Carbon Dioxide 26 mmol/L (22-30); Chloride 103 mmol/L (98-107); Estimated Creatinine Clearance 67 ml/min; Glucose 104 mg/dl (70-99); Potassium 4.2 mmol/L (3.5-5.1); Sodium 135 mmol/L (135-145); Total Protein 7.1 g/dl (6.3-8.2); eGFR 57.90
[2025-04-13 06:19] LABS: TSH 3.36 uIU/ml (0.47-4.68)
[2025-04-13] MEDS: PROTONIX 40 MG PO (07:46)
[2025-04-13] MEDS: IMDUR (EXTENDED RELEASE) 30 MG PO (07:46)
[2025-04-13] MEDS: LASIX 40 MG IV ×2 (07:47→18:05)
[2025-04-13] MEDS: COREG 6.25 MG PO ×2 (07:47→21:06)
[2025-04-13] MEDS: LOW STRENGTH ASPIRIN 81 MG PO (07:47)
[2025-04-13] MEDS: NICODERM TRANSDERMAL 7 MG TRANSDERM (07:47)
--- NOTE | 2025-04-13 08:08 | W.PN.HOSP.TC ---
Addendum entered and electronically signed by Domenico Carter MD 04/17/25 16:39:
I personally reviewed and evaluated this patient with the resident. I agree with above unless if otherwise stated below.
I personally reviewed labs and imaging business development consultant notes case management note
Addendum entered and electronically signed by Domenico Carter MD 04/14/25 13:52:
Read, reviewed, and agree. See same day progress note for additional details. Time spent reviewing records in EMR, med rec, consults, notes, d/w consultants, nursing, family, and CM
Addendum entered and electronically signed by Domenico Carter MD 04/13/25 14:37:
Acute heart failure unknown EF
Continue IV diuretics
Follow creatinine
Will likely require SGLT2 inhibitors
Echo pending
If reduced EF then will likely require ischemic workup
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
Paracentesis
Hepatitis serologies pending
GI following
Nonischemic myocardial injury with downtrending troponin likely multifactorial in the setting of heart failure and sepsis
Cardiology following
2D echocardiogram pending
May require ischemic workup
Sepsis secondary to skin and soft tissue blood culture positive for gram-negative rods
Continue cefepime
Follow-up blood culture
ID consult
Original Note:
Today's Communication/Plan
-
Paracentesis today
Echocardiography today
Follow-up blood cultures
Continue diuresis-add GDMT as able
Assessment / Plan
Assessment / Plan
59-year-old male who has history of coronary artery disease s/p CABG in 2019 with medication noncompliance from last 2 years, presented to ED with progressive weakness, shortness of breath and generalized body edema.he was noted to be in NSR with
JVD, vascular congestion, peripheral venous congestion, ascites and right-sided pleural effusion. proBNP 18,000. Not using any medications at home.
Cardiology consulted-responded well to 40 mg IV Lasix twice daily, started on Coreg and hydralazine .
Urology consulted-difficult to pass Arroyo's due to swollen genital area, low suspicion for genitourinary source of sepsis, clear urine on Arroyo placement, urine analysis clean, urine culture showed no growth
GI on board for ascites-suspect cardiac cirrhosis-planning for paracentesis today
#Acute respiratory distress, resolved.
Acute hypoxic respiratory failure with oxygen 85% on presentation, in distress, using accessory muscle
Most likely secondary to acute heart failure, responded well to Lasix and hydralazine along with Coreg, currently breathing on room air satting 92%
echo pending this a.m.
Cardiology recommendations appreciated-plan to start GDMT as able on discharge-currently on, IV Lasix Imdur and carvedilol
Admitted with a weight of 235 pounds, currently weighing 231 pounds
Input output balance -170 mL
Slight elevation in serum creatinine, expected with diuresis, continue to monitor
Continue to monitor weight, input output
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
Patient has abdominal distention, tense abdomen with slitlike umbilicus
No past history of any liver issues
GI on board-suspect cardiac cirrhosis as the cause of ascites-paracentesis due today-calculate SAAG ratio as well-Protein, cell count, cytology, culture ordered.
CT abdomen/pelvis-previous cholecystectomy, severe hepatic cirrhosis, large volume ascites
check hep studies.
# Hypertensive emergency with acute cardiogenic pulmonary edema
Resolved with current medications
Hydralazine discontinued, Coreg 6.25 mg twice daily along with Lasix 40 mg IV twice daily
Plan to stop Imdur today and add GDMT as able
#Elevated troponins most likely secondary to nonischemic myocardial injury secondary to congestive heart failure and sepsis
Trending down
Continue aspirin, echo this a.m.
HbA1c pending
#Difficulty urinating/significant lower abdominal edema/scrotal edema
urology consult appreciated-Genitals swollen more likely due to chronic edema . No signs of Bubba's gangrene.
Urine analysis and urine culture not consistent with infection
Urology okay to keep Arroyo's until sepsis resolves
# Bacteremia
Patient afebrile, leukocytosis resolved-lactic acidosis resolved-vitally stable
Sepsis present on admission with leukocytosis, lactic acidosis, fever, tachycardia-
UA not impressive for UTI
CT Abdomen and pelvis-unclear source of infection
Could be cellulitis from LE as he seems to have chronic wounds/ skin excoriation. No significant cough.
Negative influenza and COVID
f/w cultures.
Continue cefepime
# Tobacco use and marijuana use ( not regular).
# Medical noncompliance
# DVT prophylaxis, SQ heparin
#CODE STATUS-full code
Anticipated Discharge: 24 - 48 hours
Subjective/Interval History
-
Date of Service: April 13, 2025
Patient seen and examined at bedside
Admitted with progressive shortness of breath and generalized body edema, currently breathing on room air
No apparent distress, and feels fine
Objective Data
-
Labs:
Laboratory Results
04/13/25
05:05
WBC 11.3 H
Hgb 10.8 L
Hct 34.0 L
Plt Count 200
PT 17.6 H
INR 1.42
Sodium 135
Potassium 4.2
Chloride 103
Carbon Dioxide 26
BUN 29 H
Creatinine 1.4 H
Glucose 104 H
Calcium 8.6
Total Bilirubin 1.2
AST 20
ALT 18
Alkaline Phosphatase 98
Vital Signs:
Vital Signs
Temp Pulse Resp BP Pulse Ox
98.1 F 69 15 111/69 93
04/13/25 07:33 04/13/25 07:47 04/13/25 07:45 04/13/25 07:47 04/13/25 08:02
I&O
04/12/25 04/13/25 04/14/25
06:59 06:59 06:59
Intake Total 500 / 500 480 / 480
Output Total 1850 / 185 650 / 650
Balance -1350 / -1350 -170 / -170
Review of Systems
-
Constitutional: Reports Weight Gain
Abdomen/GI: Reports Other (Tense abdomen and distended)
Genitourinary: Reports Difficulty Voiding
Skin: Reports Skin Thickening
Physical Exam
-
General: Well Developed, Well Nourished, No Apparent Distress and Other (Generalized body edema)
HEENT: Normocephalic, Atraumatic and Moist Mucous Membranes
Respiratory: Non Labored Respirations and Decreased Breath Sounds (Bilaterally, right greater than left)
Cardiac: Regular Rhythm and S1/S2
GI: Soft and Distended (Tense with slit like umbilicus)
Genito-urinary: Other (Swollen testes and genitals/bruised penis and Arroyo's catheter in place draining clear urine)
Musculoskeletal: Edema, Right Lower Extrem (Skin thickening and status dermatitis) and Edema, Left Lower Extrem (Weeping wound on left leg)
Skin: Warm, Dry and Decubitus Ulcers (Stage II, left lower leg, dressing soaked with yellowish discharge)
Neuro: Awake
Psych: Calm and Intact Judgement/Insight
--- NOTE | 2025-04-13 08:47 | W.PN.CD ---
Today's Communication / Plan
-
Cont IV diuresis
Echo pending
Impression / Plan
-
59-year-old gentleman who has a history of CAD S/P CABG in 2019 and history of tobacco abuse, noncompliance, and obesity who has not seen a physician for the past few years presented with septicemia, and acute heart failure and hypertensive urgency
Acute heart failure unknown EF
- Cont IV diuresis
- monitor Cr
- figueroa [id number]
- Echo pending
- He continues to have tense edema to his hips
Hypertensive urgency
- BP is now normotensive
- continue coreg
LIver cirrhosis
- unclear cause
- paracentesis today
CAD s/p CABG
- cont aspirin unclear why he is not on a statin
- given cirrrhosis will hold for now
Physical Exam
Vital Signs/Labs
Vital Signs
Temp Pulse Resp BP Pulse Ox
98.1 F 69 15 111/69 93
04/13/25 07:33 04/13/25 07:47 04/13/25 07:45 04/13/25 07:47 04/13/25 08:02
04/12/25 04/13/25 04/14/25
06:59 06:59 06:59
Actual Weight 229 lb 15.074 oz 231 lb 11.293 oz
04/13/25 05:05
04/13/25 05:05
PT 17.6 Sec (11.4-14.6) H 04/13/25 05:05
INR 1.42 04/13/25 05:05
TSH 3.36 uIU/ml (0.47-4.68) 04/13/25 05:05
04/11/25
09:40
[id number]-V-Mqbqjxalmwa Pept 45063
LAB Results
04/11/25 04/11/25
09:40 12:17
Troponin I 0.324 H* 0.299 H*
Physical Exam
Constitutional: No acute distress and Comfortable
EENT: Anicteric
Cardiovascular: Rhythm & rate is regular and Pedal edema present
Respiratory: Respiratory effort normal and Crackles Present (soft)
GI: Distention present
Neuro/Psych: AO x 3
Data Reviewed
-
Date of Service: April 13, 2025
EKG: Tracing Personally Visualized and interpreted (sr)
Echo: Ordered by me
Labs: Labs Reviewed by me
[2025-04-13 08:51] LABS: Glycohemoglobin (HgbA1c) 5.6 % (4.0-5.6)
--- NOTE | 2025-04-13 12:18 | CM ---
Following up on Patient. Cardiology Attending asked to run pricing for the medications below and CYNTHIA Butcher spoke to the pharmacy below:
[facility] in [place] #[phone]
Farxiga 10mg - $40 for 30 pills; $60 for 90 pills
Jardiance- 10mg - $40 for 30 pills; @29.99 for 90 pills.
This was told to the Tele Rn. PLAN: Anticipate Home No Needs.
--- NOTE | 2025-04-13 13:20 | WOUNDNOTE ---
LLE (LATERAL ANTERIOR)
--- NOTE | 2025-04-13 13:22 | WOUNDNOTE ---
WO RN note: Patient admitted with CHF/sepsis, generalized edema. Patient lives with family.
See H&P for complete history.
PMH: CABG 2019, tobacco use, obesity, marijuana use.
Wound Location and type/assessment: Patient admitted with: LLE deep dermal stasis ulcers with copious serous drainage, dry scabbed ulcers RLE. LLE with mild diffuse erythema. Pedal pulses heard via portable Doppler. +Anasarca. Sacral dull red and
scarred from previous pilonidal cyst as per patient.
Appetite: on low cholesterol diet.
Pressure redistribution devices in place: Centrella Max air bed.
Plan: LLE dressing changed. Patient turned with help from LENA Rogers. ID resident Dr. Castro in during visit. Heels off bed with bariatric air chair cushion.
Will confirm orders with hospitalist of hospitalist resident and discussed with LENA Rogers.
Care plan to be updated and will follow as needed.
Note to case management of equipment requested for discharge: Air mattress at SNF.
Recommend follow up at wound care center upon discharge.
[2025-04-13 13:30] LABS: Body Fluid Second Tech EF
--- NOTE | 2025-04-13 13:39 | PTCARENOTE ---
Patient is back in his room s/p thoracentesis, bandaid in place on his left abdomen, no bleeding noted. Abdomen is now soft and nontender. Blood pressure is 121/69. Patient is denying pain when asked. Pulse ox is 98% on room air. Complete bath
provided along with wound care by team.
--- NOTE | 2025-04-13 13:53 | CON.ID ---
Addendum entered and electronically signed by Alex Holm DO 04/13/25 16:58:
I personally performed a history and physical exam of the patient and discussed management with the resident. I reviewed the resident's note and agree with the documented findings and plan of care HPI/CC.
Continue with empiric cefepime pending further culture data. Hopefully de-escalate in next 24-48 hours.
Monitor WBC / temps.
Original Note:
Consultation
-
Date/Time Consultation Requested: 04/13/2025 11:47
Date/Time Consultation Performed: 04/13/2025 13:20
Requesting Provider: Dr. Stacey Perez
Performing Provider: Dr. Alex Holm, Dr. bAdiaziz Castro
Reason for Consultation: Bacteremia from unclear source
Chief Complaint / Past History
Chief Complaint
Bacteremia from unknown source
History of Present Illness
59-year-old male with a significant past medical history including CAD with coronary bypass surgery in 2019, tobacco use and obesity presented due to progressive weakness, shortness of breath and edema for the past couple days. His stepfather who
brought him into the hospital after noticing his difficulty breathing and weakness. He said that he was started on Lasix and adult aspirin but has not been taking medication for around a year now. Patient has been having lower extremity and
scrotal edema for the past few months but does not report any pain. He has been having to use a thermos while at work for urination purposes as due to the swelling he cannot urinate directly into the bowl.
In the ED he did not report any chest pain, fever or chills and has not reported any pain while urinating or any nausea or vomiting. In the ED, he was found to be in severe acute heart failure with leukocytosis, lactic acidosis and elevated proBNP.
Patient was febrile with a temperature of 101.6 F, blood cultures were drawn and patient was started on empiric cefepime. There was concern for septicemia with possible source of infection being cellulitis from the lower extremities as they were
erythematous due to severe venous congestion. Patient's genitals continue to be swollen but no signs of Bubba's gangrene or infectious process were seen on examination. Patient was started on Arroyo catheter which is to remain until sepsis
resolves as per urology.
Patient's blood cultures preliminarily grew gram-negative bacilli. Urine culture did not show any growth. Patient was found to have large volume ascites most likely due to cardiogenic cirrhosis for which she underwent paracentesis today draining a
large amount of fluid. Fluid was sent out for testing. Following the paracentesis, his symptoms improved and he was feeling much better when seen today.
Past History
Additional Past Medical History:
CAD
CHF
HTN
Tobacco Use
Obesity
Additional Past Surgical History:
Coronary Bypass Surgery 2019
Allergy History:
No Known Allergies Allergy (Verified 04/11/25 08:41)
Medications Reviewed: Yes
Current Antibiotics:
Cefepime 1000mg Q8
Social History
Tobacco: Smoker (2 cigs a day (Last cigarette Sunday))
Alcohol: Occasional (1 Beer every 3 weeks))
Drug: Marijuana (Edibles to help with sleep)
Personal: Single
Living: With Family
Employment: Employed
Family History
Family History: Not Pertinent
Review of Systems
Review of Systems
General: Negative Fever or Chills
Cardiovascular: Negative Chest Pain
Respiratory: Negative Dyspnea or Cough
Skin / Hair / Nails: Other (erythema/edema of lower extremities)
Neurological: Negative Headache or Dizziness
Psychological: Negative Depression
Vital Signs
Temp Pulse Resp BP Pulse Ox
98.9 F 68 15 121/69 96
04/13/25 11:13 04/13/25 13:12 04/13/25 13:12 04/13/25 13:12 04/13/25 13:12
Physical Exam
Physical Exam
Constitutional: No Acute Distress, Comfortable and Non-toxic
Head: Normocephalic
Eyes: Sclera Anicteric
Cardiovascular: Regular Rate, S1/S2 and Peripheral Edema; Negative Murmur
Pulmonary: Symmetric, Coarse and Non Labored
Gastrointestinal: Soft, Non Tender, Non Distended and Normal Bowel Sounds
Genito-Urinary: Arroyo and Other (Painless scrotal swelling)
Extremities: Edema; Negative Clubbing or Cyanosis
Skin: Warm, Dry and Other (skin thickening, edema, weeping wounds on left leg)
Wound: Other
Neurological: Awake, Alert, Oriented and AO x 3
Psychological: Calm
.
Lab / Diagnostic Study Results
04/13/25 05:05
04/13/25 05:05
Abs Immat Gran (auto) 0.2 10^3/uL (0-0.05) H 04/11/25 09:40
Absolute Neuts (auto) 20.4 10^3/uL (1.4-6.5) H 04/11/25 09:40
Absolute Lymphs (auto) 0.7 10^3/uL (1.2-3.4) L 04/11/25 09:40
Absolute Monos (auto) 1.4 10^3/uL (0.1-0.6) H 04/11/25 09:40
Absolute Basos (auto) 0.1 10^3/uL (0-0.2) 04/11/25 09:40
Immature Gran % 0.7 % (0-0.5) H 04/11/25 09:40
Neutrophils % 89.8 % (42.2-75.2) H 04/11/25 09:40
Lymphocytes % 3.1 % (20.5-51.1) L 04/11/25 09:40
Monocytes % 6.2 % (1.7-9.3) 04/11/25 09:40
Eosinophils % 0.0 % (0-6) 04/11/25 09:40
Basophils % 0.2 % (0-2) 04/11/25 09:40
PT 17.6 Sec (11.4-14.6) H 04/13/25 05:05
INR 1.42 04/13/25 05:05
Lactic Acid 2.1 mmol/L (0.7-2.0) H 04/11/25 09:40
Ur Squamous Epith Cells 0-2 /LPF (Few) 04/11/25 13:54
Microbiology Results
Micro:
04/13/25 12:04 Body Fluid Culture - Pending
Peritoneal Fluid Gram Stain - Pending
04/12/25 11:50 Blood Culture - Preliminary
Blood/Venous No Growth in 24 hours- Final report to follow
04/11/25 09:40 Blood Culture - Preliminary
Blood/Venous No Growth in 48 hours- Final report to follow
04/11/25 12:17 Blood Culture - Preliminary
Blood/Venous Gram negative bacilli
Gram Stain - Preliminary
04/11/25 13:54 Urine Culture - Final
Urine NO GROWTH
04/11/25 09:40 Influenza Types A & B (NICKIE) - Final
Nasal Swab Negative for Influenza A & B, NAAT
Negative results must be combined with clinical observations
and patient history.
Nucleic Acid Amplification test (NAAT)performed on the
[email or web address] platform.
Imaging:
04/11/2025- CT Abd/pelvis W Iv Cont: LARGE VOLUME ASCITES. SEVERE HEPATIC CIRRHOSIS (possibly cardiogenic cirrhosis). Previous cholecystectomy. Mild to moderate distention of the urinary bladder. Small right pleural effusion. Mild to moderate
cardiomegaly. Previous CABG surgery. Moderate to severe diffuse anasarca.
Assessment / Plan
#Bacteremia
#Acute Heart Failure w/ unknown EF
#Ascites secondary to possible cardiogenic liver cirrhosis
#Chronic Lower extremity edema
#Chronic scrotal edema
Hx CAD with CABG (2019)
Hypertension
Tobacco Use
Marijuana Use
Plan:
- Leukocytosis resolving
- One blood culture positive for gram-negative bacilli
- Following blood cultures negative
- One fever noted at 101.6 F on 04/11, none since
- UA negative, no signs of Bubba's gangrene on scrotal area
- Skin thickening, lower extremity edema consistent with possible cellulitis
- Started on cefepime on 04/11 (Day 3)
- Continue Cefepime, follow cultures
- Follow WBC, Temp Curve
- Follow fluid studies from Paracentesis
--- NOTE | 2025-04-13 15:25 | W.PN.GI.CBS2 ---
Today's Communication / Plan
-
para completed c/w cardiac cirrhosis gi signing off
Assessment / Plan
-
59 yo M pmh CABG, non compliant p/w SOB, edema and incidentally found cirrhosis on imaging.
Para done today fluid studies c/w cardiac cirrhosis high protein SAAG 1.1.
Recommend low sodium diet.
Echo pending.
Defer to cardiology management.
GI will sign off please call with ?s
Subjective
Subjective
Date of Service: April 13, 2025
s/p 10 L off feels great after para
Objective
Data Reviewed
Laboratory Data:
Laboratory Results
04/13/25 05:05
04/13/25 05:05
Laboratory Results
PT 17.6 Sec (11.4-14.6) H 04/13/25 05:05
INR 1.42 04/13/25 05:05
Total Bilirubin 1.2 mg/dl (0.2-1.3) 04/13/25 05:05
AST 20 U/L (17-59) 04/13/25 05:05
ALT 18 U/L (0-50) 04/13/25 05:05
Alkaline Phosphatase 98 U/L (38-126) 04/13/25 05:05
Vital Signs and I&O:
Vital Signs
Temp Pulse Resp BP Pulse Ox
98.9 F 68 15 121/69 96
04/13/25 11:13 04/13/25 13:12 04/13/25 13:12 04/13/25 13:12 04/13/25 13:12
I&O
04/12/25 04/13/25 04/14/25
06:59 06:59 06:59
Intake Total 500 / 500 480 / 480 120 / 120
Output Total 1850 / 1850 650 / 650
Balance -1350 / -1350 -170 / -170 120 / 120
Physical Exam
Physical Exam
GI: Distended and Non Tender
[2025-04-13 19:04] LABS: Hepatitis B Surface Antigen Negative (Negative)
[2025-04-13 19:22] LABS: Hepatitis C Antibody Negative (Negative)
[2025-04-13] MEDS: MELATONIN 5 MG PO (21:03)
[2025-04-13] MEDS: CRESTOR 20 MG PO (21:06)
[2025-04-13] MEDS: REMOVE NICOTINE PATCH 1 PATCH REMOVE (21:36)
[2025-04-14] VITALS (11 sets, daily range): BP systolic 120–164; BP diastolic 64–81; PULSE 68–69; O2SAT 95–96; BMI 31.8
[2025-04-14] MEDS: HEPARIN 5000 UNITS SC ×4 (00:42→23:16)
[2025-04-14] MEDS: STERILE WATER FOR INJECTION 10 ML IV ×3 (05:42→21:37)
[2025-04-14] MEDS: MAXIPIME 1000 MG IV ×3 (05:43→21:38)
[2025-04-14 05:59] LABS: Hematocrit 36.5 % (39.0-52.0); Hemoglobin 11.8 g/dL (13.0-18.0); Mean Corp Hgb Conc. 32.3 g/dL (33.0-37.0); Mean Corpuscular Volume 85.9 fL (80.0-94.0); Nucleated Red Blood Cells % 0 % (-); Platelet Count 217 10^3/uL (130-400); Red Cell Dist. Width 16.8 % (11.5-14.5)
[2025-04-14 06:31] LABS: C-Reactive Protein 48.70 mg/L (0.0-10.00)
[2025-04-14 06:39] LABS: ALT (SGPT) 22 U/L (0-50); AST (SGOT) 29 U/L (17-59); Albumin 2.6 g/dl (3.5-5.0); Alkaline Phosphatase 118 U/L (38-126); Blood Urea Nitrogen 37 mg/dl (9-20); Calcium 7.8 mg/dl (8.4-10.2); Carbon Dioxide 26 mmol/L (22-30); Chloride 103 mmol/L (98-107); Estimated Creatinine Clearance 63 ml/min; Glucose 125 mg/dl (70-99); Magnesium 1.9 mg/dl (1.6-2.3); Potassium 4.4 mmol/L (3.5-5.1); Sodium 133 mmol/L (135-145); Total Protein 5.8 g/dl (6.3-8.2); eGFR 57.90
--- NOTE | 2025-04-14 08:07 | W.PN.HOSP.TC ---
Addendum entered and electronically signed by Domenico Carter MD 04/17/25 16:39:
I personally reviewed and evaluated this patient with the resident. I agree with above unless if otherwise stated below.
I personally reviewed labs and imaging insurance consultant notes case management note
Addendum entered and electronically signed by Domenico Carter MD 04/14/25 13:57:
Acute heart failure unknown EF
Continue IV diuretics
Follow creatinine
Add SGLT2 inhibitors
Echo EF 50-55%, ?cardiac amyloid, av sclerosis, cannot exclude veg
-If repeat cx + then will need DELVIN
If reduced EF then will likely require ischemic workup
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
Paracentesis, saag 07/09, protein >2.5, consistent with cardiac cirrhosis
Hepatitis serologies negative
GI following
Nonischemic myocardial injury with downtrending troponin likely multifactorial in the setting of heart failure and sepsis
Cardiology following
2D echocardiogram 50-55%, no wma
Sepsis secondary to skin and soft tissue blood culture positive for gram-negative rods
Continue cefepime
Follow-up repeat blood culture
ID consult
Original Note:
Today's Communication/Plan
-
Follow blood cultures
Continue input output monitoring
Downgrade to medsurg
Follow card and ID recs
Assessment / Plan
Assessment / Plan
59-year-old male who has history of coronary artery disease s/p CABG in 2019 with medication noncompliance from last 2 years, presented to ED with progressive weakness, shortness of breath and generalized body edema.he was noted to be in NSR with
JVD, vascular congestion, peripheral venous congestion, ascites and right-sided pleural effusion. proBNP 18,000. Not using any medications at home.
#Acute respiratory distress, resolved.
Most likely secondary to acute heart failure, responded well to Lasix and hydralazine along with Coreg, currently breathing on room air satting 96%
Echo done-LVEF 50-55% with septal contraction abnormality.Moderate to severe concentric LVH. The septum is echo bright. There is low voltage on EKG. Consider cardiac amyloid.Cannot exclude aortic valve vegetation. Moderate tricuspid
regurgitation.right ventricle is dilated with mildly reduced systolic function
DELVIN for vegetations
Input output balance -1820 mL, currently weighing 209 pounds
Currently on Lasix 40 mg twice daily, Coreg 6.25 mg twice daily, Imdur 30 mg daily, pricing of SGLT2 inhibitors done
Cards recommendations appreciated-planning to add SGLT2 inhibitors
Serum creatinine 1.4
Continue to monitor weight, input output
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
S/p paracentesis, drained 10 L of fluid, weight down by at least 20 pounds, SAG ratio consistent with cardiac cirrhosis-fluid culture showed no growth-GI signed off
Viral serologies negative-no history of alcohol abuse, no past history of liver issues
# Hypertensive emergency with acute cardiogenic pulmonary edema
Resolved with current medications
Currently on Lasix 40 mg twice daily, Coreg 6.25 mg BD, Imdur 30 mg daily
#Elevated troponins most likely secondary to nonischemic myocardial injury secondary to congestive heart failure and sepsis
Trending down, HbA1c 5.6, continue aspirin
#Difficulty urinating/significant lower abdominal edema/scrotal edema
urology consult appreciated-Genitals swollen more likely due to chronic edema . No signs of Bubba's gangrene.
Urine analysis and urine culture not consistent with infection
Urology okay to keep Arroyo's until sepsis resolves
# Bacteremia
Patient afebrile, leukocytosis resolved-lactic acidosis resolved-vitally stable
Most likely secondary to cellulitis of left lower extremity, and decubitus ulcers
Repeat blood cultures on April 12 showed no growth, urine culture no growth fluid culture no growth
Continue cefepime
# Tobacco use and marijuana use ( not regular).
# Medical noncompliance
# DVT prophylaxis, SQ heparin
#CODE STATUS-full code
Anticipated Discharge: 24 - 48 hours
Subjective/Interval History
-
Date of Service: April 14, 2025
Patient seen and examined at bedside
Feels a lot better, appetite is good, slept well overnight, vitally stable
S/p paracentesis yesterday, tolerated the procedure well
Objective Data
-
Labs:
Laboratory Results
04/14/25
05:41
WBC 10.3
Hgb 11.8 L
Hct 36.5 L
Plt Count 217
Sodium 133 L
Potassium 4.4
Chloride 103
Carbon Dioxide 26
BUN 37 H
Creatinine 1.4 H
Glucose 125 H
Calcium 7.8 L
Total Bilirubin 0.7
AST 29
ALT 22
Alkaline Phosphatase 118
Vital Signs:
Vital Signs
Temp Pulse Resp BP Pulse Ox
97.6 F 60 13 125/67 96
04/14/25 07:19 04/14/25 04:00 04/14/25 04:00 04/14/25 02:00 04/14/25 06:01
I&O
04/13/25 04/14/25 04/15/25
06:59 06:59 06:59
Intake Total 480 / 480 480 / 480
Output Total 650 / 650 2300 / 2300
Balance -170 / -170 -1820 / -1820
Review of Systems
-
All other systems: Reviewed and negative
Physical Exam
-
General: Well Developed, Well Nourished, No Apparent Distress, Comfortable and Conversant
HEENT: Normocephalic, Moist Mucous Membranes, Anicteric and [place] Conjunctivae
Respiratory: Clear to Auscultation; Negative Wheezes, Rales or Rhonchi
Cardiac: Regular Rhythm and S1/S2
GI: Soft, Nontender and Distended
Musculoskeletal: Edema, Right Lower Extrem (Thickening of skin along with crusted skin lesions, stasis dermatitis) and Edema, Left Lower Extrem (Venous ulcer, 12 x 7 x 0.1 cm, local erythema, pink wound bed scabbed, draining serous fluid)
Skin: Decubitus Ulcers (Sacral region, red dull scar)
Neuro: Awake, No Motor Deficits and Nonfocal/Grossly Intact
Psych: Calm
--- NOTE | 2025-04-14 08:37 | W.PN.ID1 ---
Date of Service
Date of Service: April 14, 2025
Today's Communication
Continue antibiotics
Assessment / Plan
# Bacteremia
# Acute Heart Failure
# Ascites secondary
# Cardiogenic liver cirrhosis
# Chronic Lower extremity edema
# Chronic scrotal edema
Hx CAD with CABG (2018)
Hypertension
Tobacco Use
Marijuana Use
Plan:
White count improved.
Await further identification of positive blood culture isolate.
Continue cefepime.
Follow WBC, Temp Curve
����������������������������������������������������������
Chief Complaint
-: Bacteremia
Subjective / Review of Systems
Review of Systems: No Fever, No Chills, No Cough and No Abdominal Pain
Vital Signs / Physical Exam
Vital Signs
Vital Signs
Temp Pulse Resp BP Pulse Ox
97.6 F 60 13 125/67 96
04/14/25 07:19 04/14/25 04:00 04/14/25 04:00 04/14/25 02:00 04/14/25 06:01
Physical Exam
Constitutional: No Acute Distress, Comfortable and Non-toxic
Cardiovascular: Regular Rate and S1/S2; Negative S3/S4
Pulmonary: Negative Wheezes, Rales or Rhonchi
Gastrointestinal: Soft, Non Tender and Non Distended
Extremities: Edema; Negative Cyanosis or Erythema
Neurological: Awake and Alert
Psychological: Calm
Objective Data
Lab Data
Lab Results
04/14/25 05:41
04/14/25 05:41
ESR 20 mm/hour (0-20) 04/14/25 05:41
PT 17.6 Sec (11.4-14.6) H 04/13/25 05:05
INR 1.42 04/13/25 05:05
Estimated Creat Clear 63 ml/min 04/14/25 05:41
Lactic Acid 2.1 mmol/L (0.7-2.0) H 04/11/25 09:40
Total Bilirubin 0.7 mg/dl (0.2-1.3) 04/14/25 05:41
AST 29 U/L (17-59) 04/14/25 05:41
ALT 22 U/L (0-50) 04/14/25 05:41
Alkaline Phosphatase 118 U/L (38-126) 04/14/25 05:41
C-Reactive Protein 48.70 mg/L (0.0-10.00) H 04/14/25 05:41
Most recent labs reviewed.
Micro Results:
04/13/25 12:04 Body Fluid Culture - Pending
Peritoneal Fluid Gram Stain - Preliminary
04/12/25 11:50 Blood Culture - Preliminary
Blood/Venous No Growth in 24 hours- Final report to follow
04/11/25 09:40 Blood Culture - Preliminary
Blood/Venous No Growth in 48 hours- Final report to follow
04/11/25 12:17 Blood Culture - Preliminary
Blood/Venous Gram negative bacilli
Gram Stain - Preliminary
04/11/25 13:54 Urine Culture - Final
Urine NO GROWTH
04/11/25 09:40 Influenza Types A & B (NICKIE) - Final
Nasal Swab Negative for Influenza A & B, NAAT
Negative results must be combined with clinical observations
and patient history.
Nucleic Acid Amplification test (NAAT)performed on the
[employer] platform.
Imaging:
04/11/2025- CT Abd/pelvis W Iv Cont: LARGE VOLUME ASCITES. SEVERE HEPATIC CIRRHOSIS (possibly cardiogenic cirrhosis). Previous cholecystectomy. Mild to moderate distention of the urinary bladder. Small right pleural effusion. Mild to moderate
cardiomegaly. Previous CABG surgery. Moderate to severe diffuse anasarca.
--- NOTE | 2025-04-14 08:56 | W.PN.CD ---
Today's Communication / Plan
-
IV lasix
add farxiga
Impression / Plan
-
59-year-old gentleman who has a history of CAD S/P CABG in 2019 and history of tobacco abuse, noncompliance, and obesity who has not seen a physician for the past few years presented with septicemia, and acute heart failure and hypertensive urgency
Acute HFPEF, severe requiring IV lasix, and close monitoring of labs/tele
-echo: EF 50-55%, severe LVH, aortic sclerosis, reduced RV fx, mod TR, PASP 43
-to consider outpatient amyloid eval based on echo appearance
- continue lasix 40mg IV bid
-add farxiga
-assess for aldactone tomorrow
Hypertensive urgency
- BP is now normotensive
- continue coreg and imdur
Liver cirrhosis with ascites
- thought to be cardiogenic
-tap for 10L on 04/13
Bacteremia
-Abx per ID
-to consider DELVIN if cultures remain positive
CAD s/p CABG
-stable, no angina
- ASA, statin
Physical Exam
Vital Signs/Labs
Vital Signs
Temp Pulse Resp BP Pulse Ox
97.6 F 60 13 125/67 96
04/14/25 07:19 04/14/25 04:00 04/14/25 04:00 04/14/25 02:00 04/14/25 06:01
04/13/25 04/14/25 04/15/25
06:59 06:59 06:59
Actual Weight 105.1 kg 94.9 kg
04/14/25 05:41
04/14/25 05:41
PT 17.6 Sec (11.4-14.6) H 04/13/25 05:05
INR 1.42 04/13/25 05:05
Magnesium 1.9 mg/dl (1.6-2.3) 04/14/25 05:41
TSH 3.36 uIU/ml (0.47-4.68) 04/13/25 05:05
04/11/25
09:40
Qlz-P-Dfcbgvwtfmn Pept [id number]
LAB Results
04/11/25 04/11/25
09:40 12:17
Troponin I 0.324 H* 0.299 H*
Physical Exam
Constitutional: No acute distress
EENT: Moist mucous membranes
Cardiovascular: Rhythm & rate is regular, Systolic murmur absent, Pedal edema present and JVD present
Respiratory: Respiratory effort normal and Lungs clear to auscul.
Neuro/Psych: AO x 3
Data Reviewed
-
Date of Service: April 14, 2025
EKG: Other (Tele: SR 60s)
Echo: Report Reviewed by me
Labs: Labs Reviewed by me
[2025-04-14] MEDS: FARXIGA 10 MG PO (10:47)
[2025-04-14] MEDS: COREG 6.25 MG PO ×2 (10:47→21:40)
[2025-04-14] MEDS: PROTONIX 40 MG PO (10:47)
[2025-04-14] MEDS: HYDROPHOR 1 APPLIC TOPICAL (10:48)
[2025-04-14] MEDS: IMDUR (EXTENDED RELEASE) 30 MG PO (10:48)
[2025-04-14] MEDS: LASIX 40 MG IV ×2 (10:49→16:01)
[2025-04-14] MEDS: FLUSH (NSS) 1 FLUSH IV (10:50)
[2025-04-14] MEDS: NICODERM TRANSDERMAL 7 MG TRANSDERM (10:51)
[2025-04-14] MEDS: LOW STRENGTH ASPIRIN 81 MG PO (10:52)
[2025-04-14] MEDS: FLUSH (NSS) 2 FLUSH IV (12:51)
--- NOTE | 2025-04-14 13:51 | PTCARENOTE ---
Patient assist x1 with rolling walker to chair and bathroom. Patient unsteady at times and weak. AAOX3 forgetful and unfamiliar with hospital environment. SOB on exertion, RA sat 95-96%. Lungs diminished with crackles at left base. Arroyo
catheter place urology determination. VS stable.
--- NOTE | 2025-04-14 14:29 | PTCARENOTE ---
Report given to Roxana PAREDES. Patient to be transferred to 4th floor rm 406 bed 1.
--- NOTE | 2025-04-14 15:32 | CM ---
Following up on Patient. Read PT/OT note, it is SNF vs Home PT. CYNTHIA Butcher spoke to the patient who does not have a PCP (need to see one and has not) yet so cannot have Home PT/OT. Patient really wants to go home, not as interested SNF, and is aware
PT/OT is following.
Patient would have to decide on Outpatient if he can get himself there vs. SNF. Patient agreed to make referrals in his area. Patient to be evaluated again and can decide from there. Patient is still working as well. PLAN: Outpatient vs. SNF
--- NOTE | 2025-04-14 16:10 | PTCARENOTE ---
Received pt from IMU into room 406-1. Pt ambulatory to bed from stretcher with x1 assistance. VSS, AAOx3. Pt reports IV stinging, notified IV team. Pt oriented to new room, educated on use of call beatty, and made comfortable in bed. Pt with no
further complaints at this time.
[2025-04-14] MEDS: CRESTOR 20 MG PO (17:04)
[2025-04-14] MEDS: MELATONIN 5 MG PO (21:36)
[2025-04-14] MEDS: REMOVE NICOTINE PATCH 1 PATCH REMOVE (22:18)
[2025-04-15] MEDS: MAXIPIME 1000 MG IV ×3 (03:45→20:16)
[2025-04-15] MEDS: STERILE WATER FOR INJECTION 10 ML IV ×3 (03:46→20:16)
--- NOTE | 2025-04-15 04:59 | PTCARENOTE ---
Patient refused LLE dressing change, patient stated, 'I will do it later in the morning.' Encouraged but pt still refused.
--- NOTE | 2025-04-15 05:56 | PTCARENOTE ---
Pt's LLE wound dressing changed this morning. Pt agreed on changing LLE dressing. Pt's left side of abdomen paracentesis site is draining moderate to large amount of serous drainage. notified.
[2025-04-15 06:00] VITALS: BMI 31.1
[2025-04-15 08:00] VITALS: BP 141/66
[2025-04-15 08:13] LABS: Hematocrit 37.6 % (39.0-52.0); Hemoglobin 11.9 g/dL (13.0-18.0); Mean Corp Hgb Conc. 31.6 g/dL (33.0-37.0); Mean Corpuscular Volume 86.4 fL (80.0-94.0); Nucleated Red Blood Cells % 0 % (-); Platelet Count 231 10^3/uL (130-400); Red Cell Dist. Width 16.6 % (11.5-14.5)
--- NOTE | 2025-04-15 08:40 | W.PN.CD ---
Today's Communication / Plan
-
continue lasix 40mg IV bid
added farxiga 10mg daily on 04/14
add aldactone 25mg daily today
Impression / Plan
-
59-year-old gentleman who has a history of CAD S/P CABG in 2019 and history of tobacco abuse, noncompliance, and obesity who has not seen a physician for the past few years presented with septicemia, and acute heart failure and hypertensive urgency
Acute HFPEF, severe requiring IV lasix, and close monitoring of labs/tele
-echo: EF 50-55%, severe LVH, aortic sclerosis, reduced RV fx, mod TR, PASP 43
-to consider outpatient amyloid eval based on echo appearance
- continue lasix 40mg IV bid
-added farxiga 10mg daily on 04/14
-add aldactone 25mg daily today
Hypertensive urgency
- BP is better
- continue coreg and imdur; add aldactone
Liver cirrhosis with ascites
- thought to be cardiogenic
-tap for 10L on 04/13
Bacteremia
-Abx per ID
-to consider DELVIN if cultures remain positive
CAD s/p CABG
-stable, no angina
- ASA, statin
Physical Exam
Vital Signs/Labs
Vital Signs
Temp Pulse Resp BP Pulse Ox
98.6 F 68 16 141/66 97
04/15/25 08:00 04/15/25 08:00 04/15/25 08:00 04/15/25 08:00 04/15/25 08:00
04/14/25 04/15/25 04/16/25
06:59 06:59 06:59
Actual Weight 94.9 kg 92.646 kg
04/15/25 07:20
PT 17.6 Sec (11.4-14.6) H 04/13/25 05:05
INR 1.42 04/13/25 05:05
Magnesium 1.9 mg/dl (1.6-2.3) 04/14/25 05:41
TSH 3.36 uIU/ml (0.47-4.68) 04/13/25 05:05
04/11/25
09:40
Hfb-A-Lvheopvcpge Pept [id number]
Physical Exam
Constitutional: No acute distress and Comfortable
EENT: Moist mucous membranes
Cardiovascular: Rhythm & rate is regular, Systolic murmur absent, Pedal edema present and JVD present
Respiratory: Respiratory effort normal
Neuro/Psych: AO x 3
Data Reviewed
-
Date of Service: April 15, 2025
EKG: Other (Tele ordered)
Labs: Labs Reviewed by me
[2025-04-15] MEDS: COREG 6.25 MG PO (09:01)
[2025-04-15] MEDS: NICODERM TRANSDERMAL 7 MG TRANSDERM (09:01)
[2025-04-15] MEDS: PROTONIX 40 MG PO (09:01)
[2025-04-15] MEDS: HYDROPHOR 1 APPLIC TOPICAL (09:02)
[2025-04-15] MEDS: HEPARIN 5000 UNITS SC ×3 (09:02→23:53)
[2025-04-15] MEDS: IMDUR (EXTENDED RELEASE) 30 MG PO (09:02)
[2025-04-15] MEDS: LOW STRENGTH ASPIRIN 81 MG PO (09:02)
[2025-04-15] MEDS: FARXIGA 10 MG PO (09:02)
[2025-04-15] MEDS: LASIX 40 MG IV ×2 (09:02→16:15)
[2025-04-15] MEDS: ALDACTONE 25 MG PO (09:04)
--- NOTE | 2025-04-15 09:05 | W.PN.HOSP.TC ---
Addendum entered and electronically signed by Domenico Carter MD 04/17/25 16:38:
I personally reviewed and evaluated this patient with the resident. I agree with above unless if otherwise stated below.
I personally reviewed labs and imaging quality compliance consultant notes case management note
Addendum entered and electronically signed by Domenico Carter MD 04/15/25 16:18:
Acute heart failure unknown EF
Continue IV diuretics
Follow creatinine
Add SGLT2 inhibitors
Echo EF 50-55%, ?cardiac amyloid, av sclerosis, cannot exclude veg
-If repeat cx + then will need DELVIN
If reduced EF then will likely require ischemic workup
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
Paracentesis, saag 07/09, protein >2.5, consistent with cardiac cirrhosis
Hepatitis serologies negative
GI following
Nonischemic myocardial injury with downtrending troponin likely multifactorial in the setting of heart failure and sepsis
Cardiology following
2D echocardiogram 50-55%, no wma
Sepsis secondary to skin and soft tissue blood culture positive for gram-negative rods
Continue cefepime
Follow-up repeat blood culture
ID consult
Read, reviewed, and agree. See same day progress note for additional details. Time spent reviewing records in EMR, med rec, consults, notes, d/w consultants, nursing, family, and CM
Original Note:
Today's Communication/Plan
-
Input output monitoring
Continue IV Lasix, Aldactone added to the regimen today
Assessment / Plan
Assessment / Plan
59-year-old male who has history of coronary artery disease s/p CABG in 2019 with medication noncompliance from last 2 years, presented to ED with progressive weakness, shortness of breath and generalized body edema.he was noted to be in NSR with
JVD, vascular congestion, peripheral venous congestion, ascites and right-sided pleural effusion. proBNP 18,000. Not using any medications at home.
#Acute respiratory distress, resolved.
Most likely secondary to acute heart failure, responded well to Lasix and hydralazine along with Coreg, currently breathing on room air satting 96%
Echo done-LVEF 50-55% with septal contraction abnormality.Moderate to severe concentric LVH. The septum is echo bright. There is low voltage on EKG. Consider cardiac amyloid.Cannot exclude aortic valve vegetation. Moderate tricuspid
regurgitation.right ventricle is dilated with mildly reduced systolic function
Input output balance - 3235 mL, currently weighing 204 pounds
Currently on Lasix 40 mg twice daily, Coreg 6.25 mg twice daily, Imdur 30 mg daily, pricing of SGLT2 inhibitors done
Cards recommendations appreciated-Farxiga and Aldactone added to the regimen
Serum creatinine 1.4
Continue to monitor weight, input output
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
S/p paracentesis, drained 10 L of fluid, protein 2.5, consistent with cardiac cirrhosis
Viral serologies negative-no history of alcohol abuse, no past history of liver issues
# Hypertensive emergency with acute cardiogenic pulmonary edema
Resolved with current medications
Currently on Lasix 40 mg twice daily, Coreg 6.25 mg BD, Imdur 30 mg daily
#Elevated troponins most likely secondary to nonischemic myocardial injury secondary to congestive heart failure and sepsis
HbA1c 5.6, continue aspirin
#Difficulty urinating/significant lower abdominal edema/scrotal edema
urology consult appreciated-Genitals swollen more likely due to chronic edema . No signs of Bubba's gangrene.
Urine analysis and urine culture not consistent with infection
Urology okay to keep Arroyo's until sepsis resolves
# Bacteremia
Patient afebrile, leukocytosis resolved-lactic acidosis resolved-vitally stable
Most likely secondary to cellulitis of left lower extremity, and decubitus ulcers
Repeat blood cultures on April 12 showed no growth, urine culture no growth fluid culture no growth
Continue cefepime
# Tobacco use and marijuana use ( not regular).
# Medical noncompliance
# DVT prophylaxis, SQ heparin
#CODE STATUS-full code
Anticipated Discharge: 24 - 48 hours
Subjective/Interval History
-
Date of Service: April 15, 2025
Patient seen and examined at bedside
Eating meals, working with physical therapy, last bowel movement yesterday
Motivated to make changes in his life
Objective Data
-
Labs:
Laboratory Results
04/15/25
07:20
WBC 9.6
Hgb 11.9 L
Hct 37.6 L
Plt Count 231
Sodium Pending
Potassium Pending
Chloride Pending
Carbon Dioxide Pending
BUN Pending
Creatinine Pending
Glucose Pending
Calcium Pending
Total Bilirubin Pending
AST Pending
ALT Pending
Alkaline Phosphatase Pending
Vital Signs:
Vital Signs
Temp Pulse Resp BP Pulse Ox
98.6 F 68 16 141/66 97
04/15/25 08:00 04/15/25 09:01 04/15/25 08:00 04/15/25 09:01 04/15/25 08:00
I&O
04/14/25 04/15/25 04/16/25
06:59 06:59 06:59
Intake Total 480 / 480 1285 / 1285 480 / 480
Output Total 2300 / 2300 5000 / 5000
Balance -1820 / -1820 -3715 / -3715 480 / 480
Review of Systems
-
All other systems: Reviewed and negative
Physical Exam
-
General: Well Developed, Well Nourished and No Apparent Distress
HEENT: Normocephalic, Moist Mucous Membranes and Brinkley Conjunctivae
Respiratory: Clear to Auscultation; Negative Wheezes, Rales or Rhonchi
Cardiac: Regular Rhythm, S1/S2, JVD and Other (Bilateral pedal edema)
GI: Nontender, Normal Bowel Sounds and Distended
Musculoskeletal: No Clubbing, No Cyanosis, Edema, Right Lower Extrem (Stasis dermatitis) and Edema, Left Lower Extrem (Serous drainage, pink wound bed)
Skin: Warm and Dry
Neuro: Awake, No Motor Deficits and Nonfocal/Grossly Intact
Psych: Calm
[2025-04-15 09:09] LABS: ALT (SGPT) 22 U/L (0-50); AST (SGOT) 23 U/L (17-59); Albumin 2.8 g/dl (3.5-5.0); Alkaline Phosphatase 123 U/L (38-126); Blood Urea Nitrogen 33 mg/dl (9-20); Calcium 7.9 mg/dl (8.4-10.2); Carbon Dioxide 28 mmol/L (22-30); Chloride 99 mmol/L (98-107); Estimated Creatinine Clearance 63 ml/min; Glucose 147 mg/dl (70-99); Magnesium 1.9 mg/dl (1.6-2.3); Potassium 4.0 mmol/L (3.5-5.1); Sodium 133 mmol/L (135-145); Total Protein 6.0 g/dl (6.3-8.2); eGFR 57.90
--- NOTE | 2025-04-15 10:11 | W.PN.ID1 ---
Date of Service
Date of Service: April 15, 2025
Today's Communication
Continue abx.
Assessment / Plan
# Bacteremia with Pseudomonas stutzeri
# Acute Heart Failure
# Ascites secondary
# Cardiogenic liver cirrhosis
# Chronic Lower extremity edema
# Chronic scrotal edema
Hx CAD with CABG (2018)
Hypertension
Tobacco Use
Marijuana Use
Plan:
White count improved.
Continue cefepime (d#5)
Complete 10 days of abx therapy. Transition to cipro 500 mg BID at D/c.
Follow WBC, Temp Curve
����������������������������������������������������������
Chief Complaint
-: Bacteremia
Subjective / Review of Systems
Review of Systems: No Fever and No Chills
Vital Signs / Physical Exam
Vital Signs
Vital Signs
Temp Pulse Resp BP Pulse Ox
98.6 F 68 16 141/66 97
04/15/25 08:00 04/15/25 09:01 04/15/25 08:00 04/15/25 09:01 04/15/25 08:00
Physical Exam
Constitutional: No Acute Distress, Comfortable and Non-toxic
Cardiovascular: Regular Rate and S1/S2; Negative S3/S4
Pulmonary: Negative Wheezes, Rales or Rhonchi
Gastrointestinal: Soft, Non Tender, Distended (mild), Normal Bowel Sounds, No Rebound and No Guarding
Extremities: Edema; Negative Cyanosis or Erythema
Skin: Warm and Dry; Negative Rash
Neurological: Awake and Alert
Psychological: Calm
Objective Data
Lab Data
Lab Results
04/15/25 07:20
04/15/25 07:20
ESR 20 mm/hour (0-20) 04/14/25 05:41
PT 17.6 Sec (11.4-14.6) H 04/13/25 05:05
INR 1.42 04/13/25 05:05
Estimated Creat Clear 63 ml/min 04/15/25 07:20
Lactic Acid 2.1 mmol/L (0.7-2.0) H 04/11/25 09:40
Total Bilirubin 0.8 mg/dl (0.2-1.3) 04/15/25 07:20
AST 23 U/L (17-59) 04/15/25 07:20
ALT 22 U/L (0-50) 04/15/25 07:20
Alkaline Phosphatase 123 U/L (38-126) 04/15/25 07:20
C-Reactive Protein 48.70 mg/L (0.0-10.00) H 04/14/25 05:41
Most recent labs reviewed.
Micro Results:
04/11/25 09:40 Blood Culture - Preliminary
Blood/Venous No Growth in 4 days- Final report to follow
04/11/25 12:17 Blood Culture - Preliminary
Blood/Venous Pseudomonas stutzeri
Gram Stain - Preliminary
04/12/25 11:50 Blood Culture - Preliminary
Blood/Venous No Growth in 48 hours- Final report to follow
04/13/25 12:04 Body Fluid Culture - Preliminary
Peritoneal Fluid No Growth After 18-24 Hours
Gram Stain - Preliminary
04/11/25 13:54 Urine Culture - Final
Urine NO GROWTH
04/11/25 09:40 Influenza Types A & B (NICKIE) - Final
Nasal Swab Negative for Influenza A & B, NAAT
Negative results must be combined with clinical observations
and patient history.
Nucleic Acid Amplification test (NAAT)performed on the
[employer] platform.
Blood Culture Preliminary 04/11/25
Pseudomonas stutzeri
Organism 1 Pseudomonas stutzeri
1. Pseudomonas stutzeri
M.I.C. RX
--------- ---
Aztreonam 16 I
Cefepime <=2 S
Ceftriaxone 2 S
Ciprofloxacin <=0.25 S
Gentamicin <=2 S
Piperacillin/Tazobactam <=8 S
Tetracycline <=4 S
Tobramycin <=2 S
Trimethoprim/Sulfamethoxazole <=2/38 S
Imaging:
04/11/2025- CT Abd/pelvis W Iv Cont: LARGE VOLUME ASCITES. SEVERE HEPATIC CIRRHOSIS (possibly cardiogenic cirrhosis). Previous cholecystectomy. Mild to moderate distention of the urinary bladder. Small right pleural effusion. Mild to moderate
cardiomegaly. Previous CABG surgery. Moderate to severe diffuse anasarca.
[2025-04-15 11:00] VITALS: BP 131/58
--- NOTE | 2025-04-15 11:40 | CM ---
Reviewed chart. Met with pt bedside. On room air. Continues on IV ABX and IV Lasix. NO PCP- unable to have HH.
Plan: O/P vs skilled.
[2025-04-15 15:00] VITALS: BP 121/54
[2025-04-15] MEDS: CRESTOR 20 MG PO (17:37)
[2025-04-15 19:35] VITALS: BP 102/63
[2025-04-15] MEDS: COREG PO (20:14)
[2025-04-15] MEDS: MELATONIN 5 MG PO (21:23)
[2025-04-15] MEDS: REMOVE NICOTINE PATCH 1 PATCH REMOVE (21:23)
[2025-04-15 23:12] VITALS: BP 148/65
[2025-04-16] VITALS (8 sets, daily range): BP systolic 121–141; BP diastolic 50–71; PULSE 73; O2SAT 99; BMI 30.3
[2025-04-16] MEDS: MAXIPIME 1000 MG IV (03:29)
[2025-04-16] MEDS: STERILE WATER FOR INJECTION 10 ML IV (03:30)
[2025-04-16 08:10] LABS: Hematocrit 36.3 % (39.0-52.0); Hemoglobin 11.7 g/dL (13.0-18.0); Mean Corp Hgb Conc. 32.2 g/dL (33.0-37.0); Mean Corpuscular Volume 85.8 fL (80.0-94.0); Nucleated Red Blood Cells % 0 % (-); Platelet Count 241 10^3/uL (130-400); Red Cell Dist. Width 16.1 % (11.5-14.5)
--- NOTE | 2025-04-16 08:18 | W.PN.CD ---
Addendum entered and electronically signed by Alex East MD 04/16/25 08:25:
Mild troponin elevation: Acute nonischemic myocardial injury secondary to CHF.
Original Note:
Today's Communication / Plan
-
-Severe requiring IV lasix; and close monitoring of labs/tele.
-Continue lasix 40 mg IV BID.
Impression / Plan
-
59-year-old gentleman who has a history of CAD S/P CABG in 2019 and history of tobacco abuse, noncompliance, and obesity who has not seen a Physician for the past few years presented with septicemia, and acute heart failure and hypertensive urgency.
Acute HFPEF:
-Severe requiring IV lasix; and close monitoring of labs/tele.
-echo: EF 50-55%, severe LVH, aortic sclerosis, reduced RV fx, mod TR, PASP 43
-to consider outpatient amyloid eval based on echo appearance
-Continue lasix 40 mg IV BID.
-Continue Farxiga 10 mg daily.
-Continue aldactone 25 mg daily today.
Hypertensive urgency
- BP is now fairly controlled.
- Continue coreg, Imdur, and aldactone.
Liver cirrhosis with ascites
- thought to be cardiogenic
-tapped for 10L on 04/13
Bacteremia
-Abx per ID
-to consider DELVIN if cultures remain positive
CAD s/p CABG
-stable, no angina
- Continue ASA, statin
Physical Exam
Vital Signs/Labs
Vital Signs
Temp Pulse Resp BP Pulse Ox
98.4 F 76 16 131/56 96
04/16/25 07:29 04/16/25 03:41 04/16/25 07:29 04/16/25 07:29 04/16/25 07:29
04/15/25 04/16/25 04/17/25
06:59 06:59 06:59
Actual Weight 92.646 kg 90.5 kg
04/16/25 07:00
PT 17.6 Sec (11.4-14.6) H 04/13/25 05:05
INR 1.42 04/13/25 05:05
Magnesium 1.9 mg/dl (1.6-2.3) 04/15/25 07:20
TSH 3.36 uIU/ml (0.47-4.68) 04/13/25 05:05
04/11/25
09:40
Miz-G-Nvnzuyneuej Pept [id number]
Physical Exam
Constitutional: No acute distress and Comfortable
EENT: Anicteric
Cardiovascular: Rhythm & rate is regular, Pedal edema present (trace to 1+), Systolic murmur present (3/6) and S1S2 is normal
Respiratory: Respiratory effort normal and Rhonchi Present (Scant bibasilar rhonchi)
GI: Soft
Neuro/Psych: AO x 3
Other: Skin (warm)
Data Reviewed
-
Date of Service: April 16, 2025
EKG: Tracing Personally Visualized and interpreted (Telemetry: Sinus rhythm)
Echo: Report Reviewed by me (EF 50-55%, severe LVH, aortic sclerosis, reduced RV fx, mod TR, PASP 43)
Labs: Labs Reviewed by me
[2025-04-16 08:52] LABS: ALT (SGPT) 24 U/L (0-50); AST (SGOT) 25 U/L (17-59); Albumin 2.9 g/dl (3.5-5.0); Alkaline Phosphatase 131 U/L (38-126); Blood Urea Nitrogen 27 mg/dl (9-20); Calcium 8.0 mg/dl (8.4-10.2); Carbon Dioxide 27 mmol/L (22-30); Chloride 99 mmol/L (98-107); Estimated Creatinine Clearance 72 ml/min; Glucose 186 mg/dl (70-99); Magnesium 2.0 mg/dl (1.6-2.3); Potassium 3.7 mmol/L (3.5-5.1); Sodium 132 mmol/L (135-145); Total Protein 6.2 g/dl (6.3-8.2); eGFR > 60.00
[2025-04-16] MEDS: IMDUR (EXTENDED RELEASE) 30 MG PO (08:56)
[2025-04-16] MEDS: FARXIGA 10 MG PO (08:57)
[2025-04-16] MEDS: COREG 6.25 MG PO ×2 (08:57→19:44)
[2025-04-16] MEDS: ALDACTONE 25 MG PO (09:00)
[2025-04-16] MEDS: PROTONIX 40 MG PO (09:01)
[2025-04-16] MEDS: NICODERM TRANSDERMAL 7 MG TRANSDERM (09:01)
[2025-04-16] MEDS: LASIX 40 MG IV ×2 (09:02→15:37)
[2025-04-16] MEDS: HEPARIN 5000 UNITS SC ×3 (09:02→23:04)
--- NOTE | 2025-04-16 09:02 | W.PN.HOSP.TC ---
Addendum entered and electronically signed by Domenico Carter MD 04/17/25 16:38:
I personally reviewed and evaluated this patient with the resident. I agree with above unless if otherwise stated below.
I personally reviewed labs and imaging lactation consultant notes case management note
Addendum entered and electronically signed by Domenico Carter MD 04/16/25 12:26:
Acute heart failure unknown EF
Continue IV diuretics
Follow creatinine
Add SGLT2 inhibitors
Echo EF 50-55%, ?cardiac amyloid, av sclerosis, cannot exclude veg
-If repeat cx + then will need DELVIN
If reduced EF then will likely require ischemic workup
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
Paracentesis, saag 07/09, protein >2.5, consistent with cardiac cirrhosis
Hepatitis serologies negative
GI following
Nonischemic myocardial injury with downtrending troponin likely multifactorial in the setting of heart failure and sepsis
Cardiology following
2D echocardiogram 50-55%, no wma
Sepsis secondary to skin and soft tissue blood culture positive for gram-negative rods
Continue cefepime
Follow-up repeat blood culture
ID consult
Read, reviewed, and agree. See same day progress note for additional details. Time spent reviewing records in EMR, med rec, consults, notes, d/w consultants, nursing, family, and CM
Original Note:
Today's Communication/Plan
-
Complete 10 days of cefepime
Continue I/O monitoring
Weight charting
Keep Foleys
Pt/Ot
Assessment / Plan
Assessment / Plan
59-year-old male who has history of coronary artery disease s/p CABG in 2019 with medication noncompliance from last 2 years, presented to ED with progressive weakness, shortness of breath and generalized body edema.he was noted to be in NSR with
JVD, vascular congestion, peripheral venous congestion, ascites and right-sided pleural effusion. proBNP 18,000. Not using any medications at home.
# Acute heart failure
Requiring IV Lasix 40 mg IV twice daily
Echo done-LVEF 50-55% with septal contraction abnormality.Moderate to severe concentric LVH. The septum is echo bright. There is low voltage on EKG. Consider cardiac amyloid.Cannot exclude aortic valve vegetation. Moderate tricuspid
regurgitation.right ventricle is dilated with mildly reduced systolic function
Input output balance -2970 mL, currently weighing 200 pounds
Currently on Lasix 40 mg twice daily, Coreg 6.25 mg twice daily, Imdur 30 mg daily, Farxiga 10 mg and Aldactone 25 mg daily
Cards recommendations appreciated-plan to evaluate cardiac myeloid on outpatient basis
Serum creatinine 1.2
Continue to monitor weight, input output
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
S/p paracentesis, drained 10 L of fluid, protein 2.5, consistent with cardiac cirrhosis
Viral serologies negative-no history of alcohol abuse, no past history of liver issues
# Hypertensive emergency with acute cardiogenic pulmonary edema
Resolved with current medications
Currently on Lasix 40 mg twice daily, Coreg 6.25 mg BD, Imdur 30 mg daily
#Elevated troponins most likely secondary to nonischemic myocardial injury secondary to congestive heart failure and sepsis
HbA1c 5.6, continue aspirin
#Difficulty urinating/significant lower abdominal edema/scrotal edema
urology consult appreciated-Genitals swollen more likely due to chronic edema . No signs of Bubba's gangrene.
Urine analysis and urine culture not consistent with infection
Keep Arroy[place]'s for I/O monitoring
# Bacteremia
Patient afebrile, leukocytosis resolved-lactic acidosis resolved-vitally stable
Most likely secondary to cellulitis of left lower extremity, and decubitus ulcers
No further growth on blood culture, urine culture and fluid culture negative
Continue cefepime(day 6)-complete 10 days
D/c ciprofloxacin 500 mg twice daily for 5 days
# Tobacco use and marijuana use ( not regular).
# Medical noncompliance
# DVT prophylaxis, SQ heparin
#CODE STATUS-full code
Anticipated Discharge: 24 - 48 hours
Subjective/Interval History
-
Date of Service: April 16, 2025
Patient seen and examined at bedside
Feeling well, no active issues, motivated to get better
Objective Data
-
Labs:
Laboratory Results
04/16/25
07:00
WBC 13.7 H
Hgb 11.7 L
Hct 36.3 L
Plt Count 241
Sodium 132 L
Potassium 3.7
Chloride 99
Carbon Dioxide 27
BUN 27 H
Creatinine 1.2
Glucose 186 H
Calcium 8.0 L
Total Bilirubin 1.0
AST 25
ALT 24
Alkaline Phosphatase 131 H
Vital Signs:
Vital Signs
Temp Pulse Resp BP Pulse Ox
98.4 F 76 16 131/56 96
04/16/25 07:29 04/16/25 03:41 04/16/25 07:29 04/16/25 07:29 04/16/25 07:29
I&O
04/15/25 04/16/25 04/17/25
06:59 06:59 06:59
Intake Total 1285 / 1285 2760 / 2760
Output Total 5000 / 5000 5250 / 5250
Balance -3715 / -3715 -2490 / -2490
Review of Systems
-
All other systems: Reviewed and negative
Physical Exam
-
General: No Apparent Distress, Comfortable and Conversant
HEENT: Moist Mucous Membranes, Anicteric and [place] Conjunctivae
Respiratory: Clear to Auscultation; Negative Wheezes, Rales or Rhonchi
Cardiac: Regular Rhythm, S1/S2, JVD and Other (Bilateral pedal edema)
GI: Soft, Normal Bowel Sounds and Distended
Musculoskeletal: Edema, Right Lower Extrem (Stasis dermatitis) and Edema, Left Lower Extrem ((Serous drainage, pink wound bed) )
Skin: Warm and Dry
Neuro: Awake, AO x 3 and Nonfocal/Grossly Intact
Psych: Calm
[2025-04-16] MEDS: LOW STRENGTH ASPIRIN 81 MG PO (09:03)
[2025-04-16] MEDS: HYDROPHOR 1 APPLIC TOPICAL (09:09)
--- NOTE | 2025-04-16 09:52 | W.PN.ID1 ---
Addendum entered and electronically signed by Alex Holm DO 04/16/25 12:25:
I saw and evaluated the patient. I reviewed the resident�s note and agree with findings and plan as documented in the resident�s note.
Overall looks good.
Transition to oral cipro to complete course of abx.
Original Note:
Date of Service
Date of Service: April 16, 2025
Today's Communication
- Continue Antibiotics
Assessment / Plan
# Bacteremia with Pseudomonas stutzeri
# Acute Heart Failure
# Ascites secondary
# Cardiogenic liver cirrhosis
# Chronic Lower extremity edema
# Chronic scrotal edema
Hx CAD with CABG (2018)
Hypertension
Tobacco Use
Marijuana Use
Plan:
- White count trended upwards today, no fevers noted
- Continue cefepime (d#6)
- Complete 10 days of abx therapy. Transition to cipro 500 mg BID at D/c.
- Follow WBC, Temp Curve
����������������������������������������������������������
Chief Complaint
-: Bacteremia
Subjective / Review of Systems
Patient seen resting comfortably in his bed today. Reports no fevers or chills, says that he has been feeling better. Overall has no acute complaints at this time.
Review of Systems: No Fever, No Chills, No Cough, No Chest Pain, No Abdominal Pain, No Nausea, No Vomiting, No Diarrhea and No Dysuria
Vital Signs / Physical Exam
Vital Signs
Vital Signs
Temp Pulse Resp BP Pulse Ox
98.4 F 76 16 131/56 96
04/16/25 07:29 04/16/25 03:41 04/16/25 07:29 04/16/25 07:29 04/16/25 07:29
Physical Exam
Constitutional: No Acute Distress, Comfortable and Non-toxic
Head: Normocephalic
Eyes: Sclera Anicteric
Cardiovascular: Regular Rate and S1/S2; Negative S3/S4
Pulmonary: Clear, Symmetric and Non Labored
Gastrointestinal: Soft, Non Tender, Distended (mild) and Normal Bowel Sounds
Extremities: Edema; Negative Cyanosis or Erythema
Skin: Warm and Dry; Negative Rash
Wound: Other (Bilateral lower extremities wrapped)
Neurological: Awake, Alert, Oriented and AO x 3
Psychological: Calm
Objective Data
Lab Data
Lab Results
04/16/25 07:00
04/16/25 07:00
ESR 20 mm/hour (0-20) 04/14/25 05:41
PT 17.6 Sec (11.4-14.6) H 04/13/25 05:05
INR 1.42 04/13/25 05:05
Estimated Creat Clear 72 ml/min 04/16/25 07:00
Lactic Acid 2.1 mmol/L (0.7-2.0) H 04/11/25 09:40
Total Bilirubin 1.0 mg/dl (0.2-1.3) 04/16/25 07:00
AST 25 U/L (17-59) 04/16/25 07:00
ALT 24 U/L (0-50) 04/16/25 07:00
Alkaline Phosphatase 131 U/L (38-126) H 04/16/25 07:00
C-Reactive Protein 48.70 mg/L (0.0-10.00) H 04/14/25 05:41
Most recent labs reviewed.
Micro Results:
04/11/25 09:40 Blood Culture - Final
Blood/Venous No Growth - Final Report
04/12/25 11:50 Blood Culture - Preliminary
Blood/Venous No Growth in 72 hours- Final report to follow
04/13/25 12:04 Body Fluid Culture - Preliminary
Peritoneal Fluid No Growth After 48 Hours
Gram Stain - Preliminary
04/11/25 12:17 Blood Culture - Preliminary
Blood/Venous Pseudomonas stutzeri
Gram Stain - Preliminary
04/11/25 13:54 Urine Culture - Final
Urine NO GROWTH
04/11/25 09:40 Influenza Types A & B (NICKIE) - Final
Nasal Swab Negative for Influenza A & B, NAAT
Negative results must be combined with clinical observations
and patient history.
Nucleic Acid Amplification test (NAAT)performed on the
[employer] platform.
Blood Culture Preliminary 04/11/25
Pseudomonas stutzeri
Organism 1 Pseudomonas stutzeri
1. Pseudomonas stutzeri
M.I.C. RX
--------- ---
Aztreonam 16 I
Cefepime <=2 S
Ceftriaxone 2 S
Ciprofloxacin <=0.25 S
Gentamicin <=2 S
Piperacillin/Tazobactam <=8 S
Tetracycline <=4 S
Tobramycin <=2 S
Trimethoprim/Sulfamethoxazole <=2/38 S
Imaging:
04/11/2025- CT Abd/pelvis W Iv Cont: LARGE VOLUME ASCITES. SEVERE HEPATIC CIRRHOSIS (possibly cardiogenic cirrhosis). Previous cholecystectomy. Mild to moderate distention of the urinary bladder. Small right pleural effusion. Mild to moderate
cardiomegaly. Previous CABG surgery. Moderate to severe diffuse anasarca.
--- NOTE | 2025-04-16 12:34 | CM ---
Reviewed chart and met with pt bedside. Continues with IV ABX (for 10 days) and IV Lasix. Pt hopes to be D/c over the weekend. Is aware he will have a new IV put in before his discharge for IV ABX at home. CM will coordinate with VN when closer to
discharge. Pt provided choices and chose [facility]. Referral made.
Plan: Home with VN for IV ABX.
[2025-04-16] MEDS: MAXIPIME IV (12:52)
[2025-04-16] MEDS: STERILE WATER FOR INJECTION IV (12:52)
--- NOTE | 2025-04-16 12:53 | CM ---
Addendum entered by Tammy Jordan 04/16/25 15:19:
Continuers with IV ABX and IV Lasix. Pt continues to refuse SNF. Spoke with patient about his willingness to participate in O/P, Pt is agreeable.
Provided resources for PCPs in [facility] and also Residency clinic.
Plan: Home with O/P PT
Original Note:
Reviewed Chart. Met with pt bedside.Continues on IV ABX and IV lasix. WBCs up today.
Plan: Home, no needs
--- NOTE | 2025-04-16 13:41 | PN.CDI ---
CDI
- -
CDI:
Physician Documentation Request
Admit Date: 04/11/25 11:58
Dear Doctor Rica,
Patient admitted for sepsis.
Laboratory Tests
04/11/25 04/13/25
09:40 05:05
Creatinine 1.0 1.4 H
Clarify which of the following accurately represents the patient's renal status:
ELIJAH
Rise in creatinine
Other
Criteria for ELIJAH*
1 Increase in serum creatinine by > or = to 0.3 mg/dL (> or = to 26.5 micromol/L) within 48 hours, OR
2 Increase in serum creatinine to > or = to 1.5 times baseline, which is known or presumed to have occurred within 7 days, OR
3 Urine volume < 0.5 nL/kg/hour for six hours
Use of terms such as suspected, likely, concern for, or probable (associated with a specific diagnosis that is being evaluated, monitored, or treated as if it exists) are acceptable and can be coded in the inpatient setting, when documented at the
time of discharge.
Thank you,
Loly Quezada RN, BSN
CDI Specialist
Available via [place] text
Please use your independent medical judgment in providing your response.
*Source: Kidney Disease: Improving Global Outcomes (KDIGO) 2012
--- NOTE | 2025-04-16 14:33 | PN.CDI ---
CDI
- -
CDI:
Physician Documentation Request
Admit Date: 04/11/25 11:58
Dear Doctor Rica,
Patient admitted for sepsis.
Laboratory Tests
04/14/25 04/15/25 04/16/25
05:41 07:20 07:00
Sodium 133 L 133 L 132 L
Based on the above, could you clarify in the progress notes, the appropriate diagnosis, if significant, that supports the above abnormalities and additional evaluation, monitoring and/or treatment rendered:
Hyponatremia
Abnormal lab value insignificant
Other
Use of terms such as suspected, likely, concern for, or probable (associated with a specific diagnosis that is being evaluated, monitored, or treated as if it exists) are acceptable and can be coded in the inpatient setting, when documented at the
time of discharge.
Thank you,
Loly Quezada RN, BSN
CDI Specialist
Available via [place] text
Please use your independent medical judgment in providing your response.
--- NOTE | 2025-04-16 15:05 | W.PN.UPDATE ---
Update Note
Progress Note Update
Regarding CDI QUERY
Mild elevation in serum creatinine expected with diuresis-coming down-continue to monitor
Hyponatremia-mild dec in Sodium level expected with diuresis- continue to monitor
[2025-04-16] MEDS: CRESTOR 20 MG PO (17:43)
[2025-04-16] MEDS: CIPRO 500 MG PO (19:44)
[2025-04-16] MEDS: MELATONIN 5 MG PO (22:14)
[2025-04-16] MEDS: TYLENOL 1000 MG PO (22:14)
[2025-04-16] MEDS: REMOVE NICOTINE PATCH 1 PATCH REMOVE (22:15)
[2025-04-17] VITALS (10 sets, daily range): BP systolic 59–151; BP diastolic 54–73; BMI 28.1
[2025-04-17 07:13] LABS: Hematocrit 37.6 % (39.0-52.0); Hemoglobin 12.0 g/dL (13.0-18.0); Mean Corp Hgb Conc. 31.9 g/dL (33.0-37.0); Mean Corpuscular Volume 87.6 fL (80.0-94.0); Nucleated Red Blood Cells % 0 % (-); Platelet Count 251 10^3/uL (130-400); Red Cell Dist. Width 16.4 % (11.5-14.5)
[2025-04-17 07:46] LABS: ALT (SGPT) 29 U/L (0-50); AST (SGOT) 32 U/L (17-59); Albumin 2.8 g/dl (3.5-5.0); Alkaline Phosphatase 119 U/L (38-126); Blood Urea Nitrogen 27 mg/dl (9-20); Calcium 7.9 mg/dl (8.4-10.2); Carbon Dioxide 35 mmol/L (22-30); Chloride 96 mmol/L (98-107); Estimated Creatinine Clearance 64 ml/min; Glucose 132 mg/dl (70-99); Magnesium 2.1 mg/dl (1.6-2.3); Potassium 3.8 mmol/L (3.5-5.1); Sodium 134 mmol/L (135-145); Total Protein 6.2 g/dl (6.3-8.2); eGFR > 60.00
--- NOTE | 2025-04-17 08:24 | W.PN.HOSP.TC ---
Addendum entered and electronically signed by Domenico Carter MD 04/17/25 16:38:
Acute heart failure unknown EF
Continue IV diuretics transition to PO diuretics per Cards
Follow creatinine
Add SGLT2 inhibitors
Echo EF 50-55%, ?cardiac amyloid, av sclerosis, cannot exclude veg
-If repeat cx + then will need DELVIN
If reduced EF then will likely require ischemic workup
Remove ho as IV dureitcs have been transitioned
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
Paracentesis, saag 07/09, protein >2.5, consistent with cardiac cirrhosis
Hepatitis serologies negative
GI following
Nonischemic myocardial injury with downtrending troponin likely multifactorial in the setting of heart failure and sepsis
Cardiology following
2D echocardiogram 50-55%, no wma
Sepsis secondary to skin and soft tissue blood culture positive for psuedo
ID trnasition to CIpro
Follow-up repeat blood culture NGTD
I personally reviewed and evaluated this patient with the resident. I agree with above unless if otherwise stated below.
I personally reviewed labs and imaging product/industry consultant notes case management note
Original Note:
Today's Communication/Plan
-
Paracentesis today
Assessment / Plan
Assessment / Plan
59-year-old male who has history of coronary artery disease s/p CABG in 2019 with medication noncompliance from last 2 years, presented to ED with progressive weakness, shortness of breath and generalized body edema.he was noted to be in NSR with
JVD, vascular congestion, peripheral venous congestion, ascites and right-sided pleural effusion. proBNP 18,000. Not using any medications at home.
# Acute heart failure
Requiring IV Lasix 40 mg IV twice daily
Echo done-LVEF 50-55% with septal contraction abnormality.Moderate to severe concentric LVH. The septum is echo bright. There is low voltage on EKG. Consider cardiac amyloid.Cannot exclude aortic valve vegetation. Moderate tricuspid
regurgitation.right ventricle is dilated with mildly reduced systolic function
Input output balance -2555 mL, currently weighing 184 pounds,6lbs over 24hrs
Coreg 6.25 mg twice daily, Imdur 30 mg daily, Farxiga 10 mg and Aldactone 25 mg daily
Cards recommendations appreciated-plan to evaluate cardiac myeloid on outpatient basis,Started oral Lasix 40 mg twice daily, outpatient follow-up with cardiology
Serum creatinine 1.2
Continue to monitor weight, input output
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
S/p paracentesis, drained 10 L of fluid, protein 2.5, consistent with cardiac cirrhosis
Viral serologies negative-no history of alcohol abuse, no past history of liver issues
Plan to do paracentesis today before discharge
# Hypertensive emergency with acute cardiogenic pulmonary edema
Resolved with current medications
Currently on Lasix 40 mg twice daily, Coreg 6.25 mg BD, Imdur 30 mg daily
#Elevated troponins most likely secondary to nonischemic myocardial injury secondary to congestive heart failure and sepsis
HbA1c 5.6, continue aspirin
#Difficulty urinating/significant lower abdominal edema/scrotal edema
urology consult appreciated-Genitals swollen more likely due to chronic edema . No signs of Bubba's gangrene.
Urine analysis and urine culture not consistent with infection
Keep Ho's for I/O monitoring
# Bacteremia
Leukocytosis
No fevers
lactic acidosis resolved-vitally stable
Most likely secondary to cellulitis of left lower extremity, and decubitus ulcers
No further growth on blood culture, urine culture and fluid culture negative
Day 7 of antibiotics-Cipro 500mg BID
Infectious disease okay with the discharge medical stable, WBC count followed by PCP on outpatient basis
# Tobacco use and marijuana use ( not regular).
# Medical noncompliance
# DVT prophylaxis, SQ heparin
#CODE STATUS-full code
Anticipated Discharge: 24 - 48 hours
Subjective/Interval History
-
Date of Service: April 17, 2025
Patient seen and examined at bedside
Advised to avoid soda, salty food
Otherwise feels well, has some leakage from the site of paracentesis
Denies any other issues
Objective Data
-
Labs:
Laboratory Results
04/17/25
06:27
WBC 15.1 H
Hgb 12.0 L
Hct 37.6 L
Plt Count 251
Sodium 134 L
Potassium 3.8
Chloride 96 L
Carbon Dioxide 35 H
BUN 27 H
Creatinine 1.2
Glucose 132 H
Calcium 7.9 L
Total Bilirubin 0.9
AST 32
ALT 29
Alkaline Phosphatase 119
Vital Signs:
Vital Signs
Temp Pulse Resp BP Pulse Ox
98.1 F 68 16 151/73 98
04/17/25 08:00 04/17/25 08:00 04/17/25 08:00 04/17/25 08:00 04/17/25 08:00
I&O
04/16/25 04/17/25 04/18/25
06:59 06:59 06:59
Intake Total 2760 / 2760 1050 / 1050
Output Total 5250 / 5250 3605 / 3605
Balance -2490 / -2490 -2555 / -2555
Review of Systems
-
All other systems: Reviewed and negative
Physical Exam
-
General: No Apparent Distress and Comfortable
HEENT: Moist Mucous Membranes, Anicteric and [place] Conjunctivae
Respiratory: Clear to Auscultation; Negative Wheezes, Rales or Rhonchi
Cardiac: Regular Rhythm and S1/S2
GI: Soft, Normal Bowel Sounds and Distended (Leakage from the site of paracentesis, draining yellowish colored fluid)
Musculoskeletal: No Clubbing, No Cyanosis, Edema, Right Lower Extrem (Stasis dermatitis) and Edema, Left Lower Extrem (Venous ulcer, healing well, pink wound bed, serous drainage)
Neuro: Awake, Alert and No Motor Deficits
Psych: Calm
[2025-04-17] MEDS: KCL 270 MEQ IV (08:40)
[2025-04-17] MEDS: CIPRO 500 MG PO ×2 (08:44→22:05)
[2025-04-17] MEDS: PROTONIX 40 MG PO (08:44)
[2025-04-17] MEDS: FARXIGA 10 MG PO (08:44)
[2025-04-17] MEDS: COREG 6.25 MG PO ×2 (08:44→22:05)
[2025-04-17] MEDS: NICODERM TRANSDERMAL 7 MG TRANSDERM (08:44)
[2025-04-17] MEDS: ALDACTONE 25 MG PO (08:45)
[2025-04-17] MEDS: HEPARIN 5000 UNITS SC ×2 (08:45→17:04)
[2025-04-17] MEDS: LOW STRENGTH ASPIRIN 81 MG PO (08:45)
[2025-04-17] MEDS: IMDUR (EXTENDED RELEASE) 30 MG PO (08:45)
[2025-04-17] MEDS: LASIX 40 MG IV (08:45)
[2025-04-17] MEDS: HYDROPHOR 1 APPLIC TOPICAL (08:46)
--- NOTE | 2025-04-17 09:42 | W.PN.CD ---
Today's Communication / Plan
-
- Will transition to Lasix 40 mg PO daily, which should be his regimen at home.
- Continue other cardiac medications at the current doses.
- No further cardiac recommendations at this time; outpatient follow-up with Cardiology.
Impression / Plan
-
59-year-old gentleman who has a history of CAD S/P CABG in 2019 and history of tobacco abuse, noncompliance, and obesity who has not seen a Physician for the past few years presented with septicemia, and acute heart failure and hypertensive urgency.
Acute HFPEF:
-echo: EF 50-55%, severe LVH, aortic sclerosis, reduced RV fx, mod TR, PASP 43
-to consider outpatient amyloid eval based on echo appearance
-Will transition to Lasix 40 mg PO daily, which should be his regimen at home.
-Continue Farxiga 10 mg daily.
-Continue aldactone 25 mg daily.
Hypertensive urgency
- BP is now fairly controlled.
- Continue coreg, Imdur, and aldactone.
NSVT:
- Brief 6-beat run, asymptomatic
- Continue current dose of Coreg (unable to increase secondary to heart rate limitations).
Liver cirrhosis with ascites
- thought to be cardiogenic
-tapped for 10L on 04/13
Bacteremia
-Continue Abx per ID
CAD s/p CABG
- Remains stable, without angina
- Continue ASA, statin
Physical Exam
Vital Signs/Labs
Vital Signs
Temp Pulse Resp BP Pulse Ox
98.1 F 68 16 151/73 98
04/17/25 08:00 04/17/25 08:44 04/17/25 08:00 04/17/25 08:44 04/17/25 08:00
04/16/25 04/17/25 04/18/25
06:59 06:59 06:59
Actual Weight 90.5 kg 83.716 kg
04/17/25 06:27
04/17/25 06:27
PT 17.6 Sec (11.4-14.6) H 04/13/25 05:05
INR 1.42 04/13/25 05:05
Magnesium 2.1 mg/dl (1.6-2.3) 04/17/25 06:27
TSH 3.36 uIU/ml (0.47-4.68) 04/13/25 05:05
04/11/25
09:40
Ins-H-Fdorjihluvb Pept [id number]
Physical Exam
Constitutional: No acute distress and Comfortable
EENT: Anicteric
Cardiovascular: Rhythm & rate is regular, Systolic murmur absent, Pedal edema present (trace to 1+) and S1S2 is normal
Respiratory: Respiratory effort normal and Rhonchi Present (Mild bibasilar)
GI: Soft
Neuro/Psych: AO x 3
Other: Skin (warm)
Data Reviewed
-
Date of Service: April 17, 2025
EKG: Tracing Personally Visualized and interpreted (Telemetry: Sinus rhythm, brief run of NSVT (6 beats))
Medical Tests (PFT, Pathology etc): Discussed with Patient
Labs: Labs Reviewed by me
--- NOTE | 2025-04-17 15:13 | W.PN.ID1 ---
Date of Service
Date of Service: April 17, 2025
Today's Communication
Continue antibiotics
Assessment / Plan
# Bacteremia with Pseudomonas stutzeri
# Acute Heart Failure
# Ascites secondary
# Cardiogenic liver cirrhosis
# Chronic Lower extremity edema
# Chronic scrotal edema
Hx CAD with CABG (2018)
Hypertension
Tobacco Use
Marijuana Use
Plan:
White count trended upwards today, no fevers recorded. No abdominal pain.
Continue Cipro (d#7 abx therapy) for recovered Pseudomonas isolate.
Follow WBC, Temp Curve
For potential paracentesis later today.
����������������������������������������������������������
Chief Complaint
-: Bacteremia
Subjective / Review of Systems
Patient seen and examined. Overall feels well. Denies abdominal pain. Denies fevers or chills.
Review of Systems: No Fever and No Chills
Vital Signs / Physical Exam
Vital Signs
Vital Signs
Temp Pulse Resp BP Pulse Ox
98.3 F 62 18 130/62 96
04/17/25 15:01 04/17/25 15:01 04/17/25 15:01 04/17/25 15:01 04/17/25 15:01
Physical Exam
Constitutional: No Acute Distress, Comfortable and Non-toxic
Eyes: No Conjunctival Hemorrhage and Sclera Anicteric
Cardiovascular: S1/S2; Negative S3/S4
Pulmonary: Non Labored
Gastrointestinal: Soft, Distended and Other (Left-sided abdominal fluid collection bag over prior paracentesis site. Positive straw-colored fluid in the bag.)
Extremities: Edema; Negative Cyanosis or Erythema
Neurological: Awake and Alert
Psychological: Calm
Objective Data
Lab Data
Lab Results
04/17/25 06:27
04/17/25 06:27
ESR 20 mm/hour (0-20) 04/14/25 05:41
PT 17.6 Sec (11.4-14.6) H 04/13/25 05:05
INR 1.42 04/13/25 05:05
Estimated Creat Clear 64 ml/min 04/17/25 06:27
Lactic Acid 2.1 mmol/L (0.7-2.0) H 04/11/25 09:40
Total Bilirubin 0.9 mg/dl (0.2-1.3) 04/17/25 06:27
AST 32 U/L (17-59) 04/17/25 06:27
ALT 29 U/L (0-50) 04/17/25 06:27
Alkaline Phosphatase 119 U/L (38-126) 04/17/25 06:27
C-Reactive Protein 48.70 mg/L (0.0-10.00) H 04/14/25 05:41
Most recent labs reviewed.
Micro Results:
04/12/25 11:50 Blood Culture - Final
Blood/Venous No Growth - Final Report
04/13/25 12:04 Body Fluid Culture - Final
Peritoneal Fluid No Growth After 72 Hours
Gram Stain - Final
04/11/25 09:40 Blood Culture - Final
Blood/Venous No Growth - Final Report
04/11/25 12:17 Blood Culture - Preliminary
Blood/Venous Pseudomonas stutzeri
Gram Stain - Preliminary
04/11/25 13:54 Urine Culture - Final
Urine NO GROWTH
04/11/25 09:40 Influenza Types A & B (NICKIE) - Final
Nasal Swab Negative for Influenza A & B, NAAT
Negative results must be combined with clinical observations
and patient history.
Nucleic Acid Amplification test (NAAT)performed on the
[employer] platform.
Blood Culture Preliminary 04/11/25
Pseudomonas stutzeri
Organism 1 Pseudomonas stutzeri
1. Pseudomonas stutzeri
M.I.C. RX
--------- ---
Aztreonam 16 I
Cefepime <=2 S
Ceftriaxone 2 S
Ciprofloxacin <=0.25 S
Gentamicin <=2 S
Piperacillin/Tazobactam <=8 S
Tetracycline <=4 S
Tobramycin <=2 S
Trimethoprim/Sulfamethoxazole <=2/38 S
Imaging:
04/11/2025- CT Abd/pelvis W Iv Cont: LARGE VOLUME ASCITES. SEVERE HEPATIC CIRRHOSIS (possibly cardiogenic cirrhosis). Previous cholecystectomy. Mild to moderate distention of the urinary bladder. Small right pleural effusion. Mild to moderate
cardiomegaly. Previous CABG surgery. Moderate to severe diffuse anasarca.
Care Review
Plan reviewed with: Physician (Resident)
--- NOTE | 2025-04-17 15:59 | CM ---
Pt remains on IV lasix . Pt continues to refuse SNF. Is open to outpatient PT . Will need scripts at discharge
Plan: home with O/P PT
[2025-04-17] MEDS: CRESTOR 20 MG PO (17:06)
--- NOTE | 2025-04-17 17:26 | PTCARENOTE ---
pt back from [facility] s/p Paracentesis. drained 4700 cc of clear gold ascitic fluid. pt AAO*3, Vss, room air. call beatty within the reach.
[2025-04-17 17:35] LABS: Body Fluid Second Tech FB
[2025-04-17] MEDS: REMOVE NICOTINE PATCH REMOVE (22:04)
[2025-04-17] MEDS: MELATONIN 5 MG PO (22:05)
[2025-04-18] MEDS: HEPARIN 5000 UNITS SC ×2 (00:56→07:56)
[2025-04-18 03:43] VITALS: BP 150/63
[2025-04-18 06:00] VITALS: BMI 26.5
[2025-04-18 07:00] VITALS: BP 155/66
[2025-04-18] MEDS: LOW STRENGTH ASPIRIN 81 MG PO (07:55)
[2025-04-18] MEDS: COREG 6.25 MG PO (07:55)
[2025-04-18] MEDS: ALDACTONE 25 MG PO (07:55)
[2025-04-18] MEDS: PROTONIX 40 MG PO (07:55)
[2025-04-18] MEDS: LASIX 40 MG PO (07:56)
[2025-04-18] MEDS: FARXIGA 10 MG PO (07:56)
[2025-04-18] MEDS: CIPRO 500 MG PO (07:56)
[2025-04-18] MEDS: NICODERM TRANSDERMAL 7 MG TRANSDERM (07:56)
[2025-04-18] MEDS: IMDUR (EXTENDED RELEASE) 30 MG PO (07:56)
[2025-04-18] MEDS: HYDROPHOR 1 APPLIC TOPICAL (07:56)
[2025-04-18 08:56] LABS: Hematocrit 38.8 % (39.0-52.0); Hemoglobin 12.7 g/dL (13.0-18.0); Mean Corp Hgb Conc. 32.7 g/dL (33.0-37.0); Mean Corpuscular Volume 86.4 fL (80.0-94.0); Nucleated Red Blood Cells % 0 % (-); Platelet Count 290 10^3/uL (130-400); Red Cell Dist. Width 16.0 % (11.5-14.5)
[2025-04-18 09:22] LABS: ALT (SGPT) 33 U/L (0-50); AST (SGOT) 38 U/L (17-59); Albumin 2.9 g/dl (3.5-5.0); Alkaline Phosphatase 115 U/L (38-126); Blood Urea Nitrogen 22 mg/dl (9-20); Calcium 8.1 mg/dl (8.4-10.2); Carbon Dioxide 32 mmol/L (22-30); Chloride 96 mmol/L (98-107); Estimated Creatinine Clearance 70 ml/min; Glucose 82 mg/dl (70-99); Magnesium 2.2 mg/dl (1.6-2.3); Potassium 4.4 mmol/L (3.5-5.1); Sodium 132 mmol/L (135-145); Total Protein 6.5 g/dl (6.3-8.2); eGFR > 60.00
--- NOTE | 2025-04-18 09:24 | W.PN.HOSP.TC ---
Addendum entered and electronically signed by Domenico Carter MD 04/18/25 13:15:
Acute heart failure unknown EF
PO Diuretics
Follow creatinine
Added SGLT2 inhibitors
Echo EF 50-55%, ?cardiac amyloid, av sclerosis, cannot exclude veg
-If repeat cx + then will need DELVIN
If reduced EF then will likely require ischemic workup
Remove ho as IV dureitcs have been transitioned
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
Paracentesis, saag 07/09, protein >2.5, consistent with cardiac cirrhosis
S/p repeat thora on 04/17
Hepatitis serologies negative
GI following
Nonischemic myocardial injury with downtrending troponin likely multifactorial in the setting of heart failure and sepsis
Cardiology following
2D echocardiogram 50-55%, no wma
Sepsis secondary to skin and soft tissue blood culture positive for psuedo
ID trnasition to CIpro
Follow-up repeat blood culture NGTD
Refused SNF
DC home with care of step father
I personally reviewed and evaluated this patient with the resident. I agree with above unless if otherwise stated below.
I personally reviewed labs and imaging mental hygiene consultant notes case management note
Original Note:
Today's Communication/Plan
-
Plan to discharge on Cipro, oral Lasix, Farxiga, Aldactone
Complete course of antibiotic and CBC on outpatient basis
Assessment / Plan
Assessment / Plan
59-year-old male who has history of coronary artery disease s/p CABG in 2019 with medication noncompliance from last 2 years, presented to ED with progressive weakness, shortness of breath and generalized body edema.he was noted to be in NSR with
JVD, vascular congestion, peripheral venous congestion, ascites and right-sided pleural effusion. proBNP 18,000. Not using any medications at home.
# Acute heart failure
Requiring IV Lasix 40 mg IV twice daily
Echo done-LVEF 50-55% with septal contraction abnormality.Moderate to severe concentric LVH. The septum is echo bright. There is low voltage on EKG. Consider cardiac amyloid.Cannot exclude aortic valve vegetation. Moderate tricuspid
regurgitation.right ventricle is dilated with mildly reduced systolic function
Input output balance -1275 mL, currently weighing 174 pounds,10lbs over 24hrs
Coreg 6.25 mg twice daily, Imdur 30 mg daily, Farxiga 10 mg and Aldactone 25 mg daily
Cards recommendations appreciated-plan to evaluate cardiac myeloid on outpatient basis,Started oral Lasix 40 mg twice daily, outpatient follow-up with cardiology
Serum creatinine 1.1
Continue to monitor weight, input output
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
S/p paracentesis, drained 10 L of fluid, protein 2.5, consistent with cardiac cirrhosis
s/p repeat paracentesis 04/17/2025-drained 4500 mL of fluid
Viral serologies negative-no history of alcohol abuse, no past history of liver issues
# Hypertensive emergency with acute cardiogenic pulmonary edema
Resolved with current medications
Currently on Lasix 40 mg twice daily, Coreg 6.25 mg BD, Imdur 30 mg daily
#Elevated troponins most likely secondary to nonischemic myocardial injury secondary to congestive heart failure and sepsis
HbA1c 5.6, continue aspirin
#Difficulty urinating/significant lower abdominal edema/scrotal edema
urology consult appreciated-Genitals swollen more likely due to chronic edema . No signs of Bubba's gangrene.
Urine analysis and urine culture not consistent with infection
Keep Ho's for I/O monitoring
# Bacteremia
Leukocytosis
No fevers
lactic acidosis resolved-vitally stable
Most likely secondary to cellulitis of left lower extremity, and decubitus ulcers
No further growth on blood culture, urine culture and fluid culture negative
Day 7 of antibiotics-Cipro 500mg BID
Infectious disease okay with the discharge medical stable, WBC count followed by PCP on outpatient basis
# Tobacco use and marijuana use ( not regular).
# Medical noncompliance
# DVT prophylaxis, SQ heparin
#CODE STATUS-full code
Anticipated Discharge: Within 24 hours
Subjective/Interval History
-
Date of Service: April 18, 2025
Patient see and examined at bedside
S/p paracentesis yesterday, drained 4500 mL fluid, vitally stable
No complaints, feeling better
Objective Data
-
Labs:
Laboratory Results
04/18/25
07:08
WBC 17.5 H
Hgb 12.7 L
Hct 38.8 L
Plt Count 290
Sodium 132 L
Potassium 4.4
Chloride 96 L
Carbon Dioxide 32 H
BUN 22 H
Creatinine 1.1
Glucose 82
Calcium 8.1 L
Total Bilirubin 1.0
AST 38
ALT 33
Alkaline Phosphatase 115
Vital Signs:
Vital Signs
Temp Pulse Resp BP Pulse Ox
97.6 F 62 16 155/66 100
04/18/25 07:00 04/18/25 07:55 04/18/25 07:00 04/18/25 07:55 04/18/25 07:00
I&O
04/17/25 04/18/25 04/19/25
06:59 06:59 06:59
Intake Total 1050 / 1050 900 / 900
Output Total 3605 / 3605 1875 / 1875
Balance -2555 / -2555 -975 / -975
Review of Systems
-
All other systems: Reviewed and negative
Physical Exam
-
General: No Apparent Distress
HEENT: Moist Mucous Membranes, Anicteric and Davis Conjunctivae
Respiratory: Clear to Auscultation; Negative Wheezes, Rales or Rhonchi
Cardiac: Regular Rhythm and S1/S2
GI: Soft, Normal Bowel Sounds, Distended and Other (Some fluid leakage from site of paracentesis, bag attached, straw-colored fluid)
Musculoskeletal: No Clubbing, No Cyanosis and No Edema
Skin: Warm and Dry
Neuro: Awake and AO x 3
Psych: Calm
[2025-04-18 10:51] VITALS: BP 124/53
--- NOTE | 2025-04-18 11:14 | W.PN.ID1 ---
Date of Service
Date of Service: April 18, 2025
Today's Communication
Monitor wbc. Continue cipro.
Assessment / Plan
# Bacteremia with Pseudomonas stutzeri
# Acute Heart Failure
# Ascites secondary cardiogenic
# Cardiogenic liver cirrhosis
# Chronic Lower extremity edema
# Chronic scrotal edema
Hx CAD with CABG (2018)
Hypertension
Tobacco Use
Marijuana Use
Plan:
White count continues to trend up, unclear etiology. No fevers recorded.
Ascitic fluid with 79 polys, not consistent with SBP. Cx neg to date
Continue Cipro (d#8 abx therapy) for recovered Pseudomonas isolate.
Monitor WBC fo now.
����������������������������������������������������������
Chief Complaint
-: Bacteremia
Subjective / Review of Systems
Feels much improved after large volume paracentesis.
Vital Signs / Physical Exam
Vital Signs
Vital Signs
Temp Pulse Resp BP Pulse Ox
98.3 F 62 16 124/53 97
04/18/25 10:51 04/18/25 10:51 04/18/25 10:51 04/18/25 10:51 04/18/25 10:51
Physical Exam
Constitutional: No Acute Distress and Comfortable
Eyes: No Conjunctival Hemorrhage and Sclera Anicteric
Cardiovascular: S1/S2; Negative S3/S4
Pulmonary: Non Labored
Gastrointestinal: Soft, Non Tender, Distended (mild) and Other (Left-sided abdominal fluid collection bag over prior paracentesis site. Positive straw-colored fluid in the bag.)
Extremities: Edema; Negative Cyanosis or Erythema
Neurological: Awake and Alert
Objective Data
Lab Data
Lab Results
04/18/25 07:08
04/18/25 07:08
ESR 20 mm/hour (0-20) 04/14/25 05:41
PT 17.6 Sec (11.4-14.6) H 04/13/25 05:05
INR 1.42 04/13/25 05:05
Estimated Creat Clear 70 ml/min 04/18/25 07:08
Lactic Acid 2.1 mmol/L (0.7-2.0) H 04/11/25 09:40
Total Bilirubin 1.0 mg/dl (0.2-1.3) 04/18/25 07:08
AST 38 U/L (17-59) 04/18/25 07:08
ALT 33 U/L (0-50) 04/18/25 07:08
Alkaline Phosphatase 115 U/L (38-126) 04/18/25 07:08
C-Reactive Protein 48.70 mg/L (0.0-10.00) H 04/14/25 05:41
Most recent labs reviewed.
Micro Results:
04/17/25 16:01 Body Fluid Culture - Preliminary
Peritoneal Fluid No Growth After 18-24 Hours
Gram Stain - Preliminary
04/11/25 12:17 Blood Culture - Final
Blood/Venous Pseudomonas stutzeri
Gram Stain - Final
04/12/25 11:50 Blood Culture - Final
Blood/Venous No Growth - Final Report
04/13/25 12:04 Body Fluid Culture - Final
Peritoneal Fluid No Growth After 72 Hours
Gram Stain - Final
04/11/25 09:40 Blood Culture - Final
Blood/Venous No Growth - Final Report
04/11/25 13:54 Urine Culture - Final
Urine NO GROWTH
04/11/25 09:40 Influenza Types A & B (NICKIE) - Final
Nasal Swab Negative for Influenza A & B, NAAT
Negative results must be combined with clinical observations
and patient history.
Nucleic Acid Amplification test (NAAT)performed on the
[employer] platform.
Blood Culture Preliminary 04/11/25
Pseudomonas stutzeri
Organism 1 Pseudomonas stutzeri
1. Pseudomonas stutzeri
M.I.C. RX
--------- ---
Aztreonam 16 I
Cefepime <=2 S
Ceftriaxone 2 S
Ciprofloxacin <=0.25 S
Gentamicin <=2 S
Piperacillin/Tazobactam <=8 S
Tetracycline <=4 S
Tobramycin <=2 S
Trimethoprim/Sulfamethoxazole <=2/38 S
Imaging:
04/11/2025- CT Abd/pelvis W Iv Cont: LARGE VOLUME ASCITES. SEVERE HEPATIC CIRRHOSIS (possibly cardiogenic cirrhosis). Previous cholecystectomy. Mild to moderate distention of the urinary bladder. Small right pleural effusion. Mild to moderate
cardiomegaly. Previous CABG surgery. Moderate to severe diffuse anasarca.
--- NOTE | 2025-04-18 12:13 | W.DCSUMMARY ---
Documented by User: Stacey Strauss MD, Resident 04/18/25 12:40
Discharge Summary
Discharge Data
Date of Admission: 04/11/25
Date of Discharge: 04/18/25
-
Pending Results: No
Hospital Course
Discharging Physician :
Domenico Carter
Disposition :
Patient refused SNF,home with Outpatient PT/Ot
Primary care physician :
None
Principal Discharge diagnosis :
Acute heart failure with preserved EF
cardiac cirrhosis with ascites
Hypertensive emergency
Bacteremia with Pseudomonas stutzeri
Chronic Discharge diagnosis :
coronary artery disease s/p CABG in 2019 with medication noncompliance
tobacco use, obesity
Hospital Course :
59-year-old male who has history of coronary artery disease s/p CABG in 2019 with medication noncompliance from last 2 years, presented to ED with progressive weakness, shortness of breath and generalized body edema.he was noted to be in NSR with
JVD, vascular congestion, peripheral venous congestion, ascites and right-sided pleural effusion. proBNP 18,000. Not using any medications at home.
#Acute HFpEF
Cardiology recommendations appreciated
echo: EF 50-55%, severe LVH, aortic sclerosis, reduced RV fx, mod TR, PASP 43
-to consider outpatient amyloid eval based on echo appearance
- Started on Farxiga, Aldactone, oral Lasix, Coreg and Imdur
- Blood pressure well-controlled, symptomatically improved, lost 60 pounds with diuresis and paracentesis
-Continue medications and outpatient follow-up with cardiology
#Hypertensive urgency
Blood pressure well-controlled on Coreg, Imdur and Aldactone
#Cardiac cirrhosis
S/p paracentesis, 04/13-drained 10 L of fluid, 04/17/2025-drained 4500 mL of fluid
Fluid analysis with SAG ratio of 1.1 and protein greater than 2.5 consistent with cardiac cirrhosis
#Bacteremia with Pseudomonas stutzeri
Most likely secondary to cellulitis of left lower extremity, and decubitus ulcers
IV cefepime for 6 days, Cipro started, total days of antibiotics 10 days
WBC trending up but patient remains asymptomatic, afebrile, to be followed up on outpatient basis
Important imaging findings :
Abdomen/pelvis CT (05/02)
IMPRESSION:
1. LARGE VOLUME ASCITES.
2. SEVERE HEPATIC CIRRHOSIS (possibly cardiogenic cirrhosis).
3. Previous cholecystectomy.
4. Mild to moderate distention of the urinary bladder.
5. Small right pleural effusion.
6. Mild to moderate cardiomegaly.
7. Previous CABG surgery.
8. Moderate to severe diffuse anasarca.
Abdominal ultrasound 05/02
IMPRESSION:
Large volume abdominopelvic ascites.
Chest x-ray 05/02
Lungs: No convincing focal infiltrates. Probable small right pleural effusion. No visualized pneumothorax.
Heart: Cardiac and mediastinal contours are moderately enlarged. Mild pulmonary vascular congestion.
Osseous structures: No acute abnormalities.
IMPRESSION:
CHF/pulmonary interstitial edema.
Procedure findings :
S/p ultrasound-guided diagnostic and therapeutic paracentesis 04/13/2025-fluid status with SAG ratio of 1.1 and protein of 4.8, consistent with cardiac cirrhosis
Repeat paracentesis 04/17/25-4700 mL fluid drained-did not meet SBP criteria
Discharge Plan
-
Patient Disposition: Home (Routine Discharge)
Discharge Diagnosis/Procedures: Acute HFPEF
Hypertensive urgency
Cardiogenic Cirrhosis with ascites
Sepsis secondary to skin and soft tissue blood culture positive for psuedo
Condition: Fair
Diet: Low Cholesterol and 2 Gram Sodium
Activity: As tolerated
Driving Restrictions: Not until seen by your Dr
Bathing Restrictions: OK to Shower
Blood Work: Repeat cbc in 3 days and fwd results to PCP
Activity Restrictions/Additional Instructions:
Wound Care Instructions
LLE wounds-clean with saline, Aquaphor ointment to surrounding skin, adaptic, alginate, ABD pad, secure with Kerlix, change BID and prn drainage.
Aquaphor ointment to dry skin Le's daily.
Bilateral knee high Saw wraps as tolerated; may remove q hs; rewrap daily.
Air mattress
Elevate heels off bed with pillows/air chair cushion; soft heel relief boots if needed.
Pressure redistributing chair cushion (i.e. air, gel).
Make appointment with gas leak inspector helper for toenail care.
Follow up with wound rn transitional care or at wound care center call for an appointment.
Instructions: *PCP/Other Funeral Attendant Heart Failure Instructions
Referrals:
[facility] [Provider Group] - in less than 1 week
NONE,* [Family Provider, Internal Medicine]
Prescriptions:
New
ciprofloxacin HCl 500 mg Tablet
500 mg PO BID 3 Days Qty: 6 0RF
spironolactone 25 mg Tablet
25 mg PO DAILY 30 Days Qty: 30 0RF
carvedilol 3.125 mg Tablet
6.25 mg PO BID 30 Days Qty: 120 0RF
rosuvastatin 20 mg Tablet
20 mg PO QPM 30 Days Qty: 30 0RF
dapagliflozin propanediol 10 mg Tablet
10 mg PO DAILY 30 Days Qty: 30 0RF
furosemide 40 mg Tablet
40 mg PO DAILY 30 Days Qty: 30 0RF
isosorbide mononitrate 30 mg Tablet Extended Release 24 Hr
30 mg PO DAILY 30 Days Qty: 30 0RF
aspirin 81 mg Tablet,Chewable
81 mg PO DAILY 30 Days Qty: 30 0RF
nicotine 7 mg/24 hr Patch 24 Hour
7 mg transdermal DAILY 30 Days Qty: 30 0RF
melatonin 5 mg Tablet
5 mg PO HS 30 Days Qty: 30 0RF
acetaminophen [Tylenol Extra Strength] 500 mg Tablet
1,000 mg PO Q6HPRN PRN (Reason: fever/mild to mod pain) 30 Days Qty: 30 0RF
pantoprazole 40 mg Tablet,Delayed Release (Dr/Ec)
40 mg PO DAILY 30 Days Qty: 30 0RF
Discharge Orders:
Discharge Patient (As Directed); Ordered 04/18/25
Ordered By: Stacey Strauss
Discharge Date and Time
Print Language: [place]

Documented by User: Domenico Carter MD 04/18/25 13:15
Discharge Summary
Discharge Data
Date of Admission: 04/11/25
Date of Discharge: 04/18/25
Discharge Plan
-
Patient Disposition: Home (Routine Discharge)
Discharge Diagnosis/Procedures: Acute HFPEF
Hypertensive urgency
Cardiogenic Cirrhosis with ascites
Sepsis secondary to skin and soft tissue blood culture positive for psuedo
Condition: Fair
Diet: Low Cholesterol and 2 Gram Sodium
Activity: As tolerated
Driving Restrictions: Not until seen by your Dr
Bathing Restrictions: OK to Shower
Blood Work: Repeat cbc in 3 days and fwd results to PCP
Activity Restrictions/Additional Instructions:
Wound Care Instructions
LLE wounds-clean with saline, Aquaphor ointment to surrounding skin, adaptic, alginate, ABD pad, secure with Kerlix, change BID and prn drainage.
Aquaphor ointment to dry skin Le's daily.
Bilateral knee high Saw wraps as tolerated; may remove q hs; rewrap daily.
Air mattress
Elevate heels off bed with pillows/air chair cushion; soft heel relief boots if needed.
Pressure redistributing chair cushion (i.e. air, gel).
Make appointment with gas leak inspector helper for toenail care.
Follow up with wound rn transitional care or at wound care center call for an appointment.
Instructions: *PCP/Other Funeral Attendant Heart Failure Instructions
Referrals:
[facility] [Provider Group] - in less than 1 week
NONE,* [Family Provider, Internal Medicine]
Prescriptions:
New
ciprofloxacin HCl 500 mg Tablet
500 mg PO BID 3 Days Qty: 6 0RF
spironolactone 25 mg Tablet
25 mg PO DAILY 30 Days Qty: 30 0RF
carvedilol 3.125 mg Tablet
6.25 mg PO BID 30 Days Qty: 120 0RF
rosuvastatin 20 mg Tablet
20 mg PO QPM 30 Days Qty: 30 0RF
dapagliflozin propanediol 10 mg Tablet
10 mg PO DAILY 30 Days Qty: 30 0RF
furosemide 40 mg Tablet
40 mg PO DAILY 30 Days Qty: 30 0RF
isosorbide mononitrate 30 mg Tablet Extended Release 24 Hr
30 mg PO DAILY 30 Days Qty: 30 0RF
aspirin 81 mg Tablet,Chewable
81 mg PO DAILY 30 Days Qty: 30 0RF
nicotine 7 mg/24 hr Patch 24 Hour
7 mg transdermal DAILY 30 Days Qty: 30 0RF
melatonin 5 mg Tablet
5 mg PO HS 30 Days Qty: 30 0RF
acetaminophen [Tylenol Extra Strength] 500 mg Tablet
1,000 mg PO Q6HPRN PRN (Reason: fever/mild to mod pain) 30 Days Qty: 30 0RF
pantoprazole 40 mg Tablet,Delayed Release (Dr/Ec)
40 mg PO DAILY 30 Days Qty: 30 0RF
Discharge Orders:
Discharge Patient (As Directed); Ordered 04/18/25
Ordered By: Stacey Strauss
Discharge Date and Time
Print Language: [place]
--- NOTE | 2025-04-18 12:58 | CM ---
Patient has been medically cleared for discharge to home with script for outpatient PT. Therapy recommended SNF but patient declined and wants to go home with outpatient. Patient arranged for transport home.
[2025-04-18] MEDS: FLUZONE (6 mos+) 2025-2026 FORMULA 0.5 ML IM (13:36)
[2025-04-18] MEDS: PREVNAR 20 0.5 ML IM (13:36)
[2025-04-18 15:00] VITALS: BP 125/62
--- NOTE | 2025-04-20 11:22 | W.HF.CON ---
Heart Failure
- LV Function
Left ventricular function study result: LV Ejection fraction >/= 50%
Ejection Fraction Percentage: 50-55
- ARNI
Patient already on ARNI: No
Heart Failure ARNI Not Indicated: LV Ejection Fraction >/= 40%
- ACEI/ARB
Patient already on ACEI/ARB: No
Heart Failure ACEI/ARB Not Indicated: LV Ejection Fraction > 40%
- Beta Randolph
Patient already on Evidence Based Beta Randolph: Yes
- Mineralocorticord Receptor Antagonist
Patient already on MRA: Yes
- SGLT-2 Inhibitor
Patient already on SGLT-2 Inhibitor: Yes
- NYHA CHF Classification
NYHA CHF Classification Level: Class III - Symptoms w/ min exertion, interferes w/ nml daily activity
- ACC/AHA Stage
ACC/AHA Stage: Stage C: Symptomatic Heart Failure
== END 2025-04-18 17:02 | disposition home or self-care (01) | DRG 871 ==
LOC: 4 EAST ACU 11:58
PROVIDERS: Physician Assistant; Radiology Diagnostic Radiology; Radiology Vascular & Interventional Radiology; ADMITTING PHYSICIAN Internal Medicine; ATTENDING PHYSICIAN Hospitalist; CONSULT PHYSICIAN Internal Medicine Cardiovascular Disease; CONSULT PHYSICIAN Internal Medicine Gastroenterology; CONSULT PHYSICIAN Internal Medicine Infectious Disease; CONSULT PHYSICIAN Urology; EMERGENCY PHYSICIAN Emergency Medicine
PROC: 0W9G3ZZ Drainage of Peritoneal Cavity, Percutaneous Approach (ICD-10-PCS; 2025-04-13)
PROC: 3E02340 Introduction of Influenza Vaccine into Muscle, Percutaneous Approach (ICD-10-PCS; 2025-04-18)
PROC: 3E0234Z Introduction of Serum, Toxoid and Vaccine into Muscle, Percutaneous Approach (ICD-10-PCS; 2025-04-18)
DX: A41.9 Sepsis, unspecified organism (principal); I50.31 Acute diastolic (congestive) heart failure; J96.01 Acute respiratory failure with hypoxia; E87.20 Acidosis, unspecified; I16.1 Hypertensive emergency; I5A Non-ischemic myocardial injury (non-traumatic); E87.1 Hypo-osmolality and hyponatremia; R18.8 Other ascites; I47.20 Ventricular tachycardia, unspecified; L03.116 Cellulitis of left lower limb; K76.1 Chronic passive congestion of liver; N50.89 Other specified disorders of the male genital organs; F17.210 Nicotine dependence, cigarettes, uncomplicated; F12.90 Cannabis use, unspecified, uncomplicated; I25.10 Atherosclerotic heart disease of native coronary artery without angina pectoris; I11.0 Hypertensive heart disease with heart failure; E66.9 Obesity, unspecified; I07.1 Rheumatic tricuspid insufficiency; I70.0 Atherosclerosis of aorta; L89.90 Pressure ulcer of unspecified site, unspecified stage; Q55.64 Hidden penis; Z11.52 Encounter for screening for COVID-19; Z23 Encounter for immunization; Z68.26 Body mass index [BMI] 26.0-26.9, adult; Z79.899 Other long term (current) drug therapy; Z91.148 Patient's other noncompliance with medication regimen for other reason; Z95.1 Presence of aortocoronary bypass graft
CPT/HCPCS: 49083; 51702; 51798; 71046; 74177; 76705; 80048; 80053; 81003; 81015; 82042; 82248; 83036; 83605; 83615; 83735; 83880; 84157; 84443; 84484; 85025; 85027; 85610; 85652; 86140; 86704; 86706; 86803; 87015; 87040; 87070; 87077; 87086; 87154; 87186; 87205; 87340; 87502; 87811; 88112; 88305; 89051; 90656; 90677; 93005; 93306; 96365; 96375; 97116; 97163; 97167; 97530; 97535; 99285; 99406; G0008; G0009; Q9967